=== PATIENT | female | born 1935 | race Caucasian/White ===

== ENCOUNTER 2017-09-06 13:26 | Outpatient (CLI) | payer MEDICARE, OTHER ==
--- NOTE | 2017-09-06 16:11 | XRAY Report ---
DATE OF SERVICE: 09/06/2017 TWO VIEW CHEST: 09/06/2017 CLINICAL INDICATION: New onset atrial fibrillation. COMPARISON: CT chest 10/12/2014. FINDINGS: Frontal and lateral views of the chest demonstrate a normal cardiac silhouette. Elevation of the left hemidiaphragm is stable from previous. Calcified granulomas and calcified hilar lymph nodes are unchanged. No new consolidation is seen. No effusion or pneumothorax is appreciated. IMPRESSION: STABLE ELEVATION OF THE LEFT HEMIDIAPHRAGM. CHANGES OF OLD GRANULOMATOUS DISEASE. NO EVIDENCE OF ACUTE CARDIOPULMONARY DISEASE. TD: 09/06/2017 17:10
== END 2017-09-06 13:27 | disposition home or self-care (01) ==
LOC: DI.N 13:26
PROVIDERS: ATTEND Physician Assistant
DX: I48.91 Unspecified atrial fibrillation (principal); I10 Essential (primary) hypertension; J06.9 Acute upper respiratory infection, unspecified; J98.6 Disorders of diaphragm
CPT/HCPCS: 71046

== ENCOUNTER 2017-10-26 12:31 | Outpatient (CLI) | payer MEDICARE, OTHER | END 2017-10-26 12:32 | disposition home or self-care (01) | LOC: DI 12:31 | PROVIDERS: ATTEND Family Medicine | DX: I48.91 Unspecified atrial fibrillation (principal); I50.9 Heart failure, unspecified; R60.9 Edema, unspecified; I07.1 Rheumatic tricuspid insufficiency; I27.20 Pulmonary hypertension, unspecified | CPT/HCPCS: 93306 ==

== ENCOUNTER 2018-03-21 09:26 | Outpatient (CLI) | payer MEDICARE, OTHER ==
--- NOTE | 2018-03-21 09:58 | XRAY Report ---
Procedure Date: 03/21/2018 Accession Number: [id number] / [id number] Procedure: XRN - Chest 2 View X-Ray CPT Code: 86153 FULL RESULT: EXAM: Chest 2 View X-Ray DATE: 03/21/2018 9:39 AM CLINICAL HISTORY: ABNL EXA,LL,VEGA COMPARISON: None. TECHNIQUE: 2 views. FINDINGS: Lungs/Pleura: Prior granulomatous disease as well as elevation of the left hemidiaphragm are redemonstrated. There is no new focal consolidation, pleural effusion or pneumothorax. Mediastinum: Heart and mediastinal contours are essentially unchanged.. Other: None. IMPRESSION: Stable exam demonstrating prior granulomatous disease and elevation of the left hemidiaphragm with no acute abnormality. RADIA
== END 2018-03-21 09:27 | disposition home or self-care (01) ==
LOC: DI.N 09:26
PROVIDERS: ATTEND Internal Medicine
DX: R06.09 Other forms of dyspnea (principal)
CPT/HCPCS: 71046

== ENCOUNTER 2018-08-27 06:31 | Outpatient (CLI) | payer MEDICARE, OTHER | END 2018-08-27 06:32 | disposition critical access hospital (66) | LOC: EMS 06:31 | PROVIDERS: ATTEND Surgery | DX: R06.02 Shortness of breath (principal); R11.0 Nausea; R53.1 Weakness | CPT/HCPCS: A0425; A0429 ==

== ENCOUNTER 2018-08-27 06:49 | Inpatient (IN) | payer MEDICARE, OTHER ==
[2018-08-27] MEDS ORDERED: SODIUM CHLORIDE 0.9% 1,000 ML IV ONE (07:02)
[2018-08-27] MEDS ORDERED: ONDANSETRON 4 MG/2 ML VIAL IVP STA ×2 (07:14→08:00)
[2018-08-27 07:18] LABS: BASOPHILS % (AUTO) 0.7 %; EOSINOPHILS # (AUTO) 0.1 10^3/uL (0.0-0.7); EOSINOPHILS % (AUTO) 3.2 %; HGB - HEMOGLOBIN 13.2 g/dL (12.0-16.0); LYMPHOCYTES # (AUTO) 1.1 10^3/uL (1.5-3.5); LYMPHOCYTES % (AUTO) 25.4 %; MEAN CORPUSCULAR HEMOGLOBIN 31.6 pg (27.0-31.0); MEAN CORPUSCULAR HGB CONC 34.2 g/dL (32.0-36.0); MEAN CORPUSCULAR VOLUME 92.3 fL (81.0-99.0); MEAN PLATELET VOLUME 7.7 fL (7.9-10.8); MONOCYTES # (AUTO) 0.3 10^3/uL (0.0-1.0); MONOCYTES % (AUTO) 7.7 %; NEUTROPHILS # (AUTO) 2.8 10^3/uL (1.5-6.6); PLT - PLATELET COUNT 229 10^3/uL (130-450); RED BLOOD COUNT 4.18 10^6/uL (4.20-5.40); RED CELL DISTRIBUTION WIDTH 15.2 % (12.0-15.0); WHITE BLOOD COUNT 4.5 x10^3/uL (4.8-10.8)
[2018-08-27] MEDS ORDERED: IOVERSOL 320 100 ML VIAL IVP ONE ×4 (07:18→11:52)
--- NOTE | 2018-08-27 07:24 | ED Physician Documentation ---
PD HPI FOCAL NEURO - Stated complaint Stated Complaint: WEAKNESS/ SOA - Chief complaint Chief Complaint: Neuro - History obtained from History obtained from: Patient, Family, EMS - History of Present Illness Timing - onset: How many hours ago (2) Timing - duration: Hours (2) Timing - details: Abrupt onset Severity of deficit: Mild Weakness: Arm, Leg, Right Associated symptoms: Nausea / vomiting, Other (Shortness of breath) Contributing factors: positive: Anticoagulated, Atrial fibrillation Baseline status: positive: A&OX3, ambulatory, indep, Cane Similar symptoms before: Has not had sx before Recently seen: Not recently seen - Additional information Additional information: 83-year-old female with history of atrial fib on Xarelto, asthma, HTN here with complaint of right-sided weakness and shortness of breath upon awakening at 5:00 this morning. She states that she tried to stand up and fell back in bed due to the right sided weakness. Patient is active and had been using a cane just for balance related to Meniere's. Patient claimed that she was in [place] a week ago for a couple of days due to of her brother. They flew to [place]. Per family patient was driving around to the senior citizen yesterday. Patient denies any recent illness. Patient complaint of nausea related to riding in the ambulance. EMS reported that when they arrived on scene patient's room air pulse ox was 86% and patient had some wheezing. She was given oxygen and 1 DuoNeb with improvement. They also reported that she had right-sided weakness upon arrival about an hour ago. Review of Systems Ten Systems: 10 systems reviewed and negative Constitutional: denies: Fever, Chills, Myalgias Nose: denies: Rhinorrhea / runny nose, Congestion Throat: denies: Sore throat Cardiac: denies: Chest pain / pressure Respiratory: reports: Dyspnea. denies: Cough GI: reports: Nausea. denies: Abdominal Pain, Vomiting Neurologic: reports: Focal weakness. denies: Generalized weakness, Numbness, Difficulty speaking, Syncope, Confused, Altered mental status, Headache, Head injury, LOC PD PAST MEDICAL HISTORY - Past Medical History Cardiovascular: Hypertension Respiratory: Asthma Endocrine/Autoimmune: None GI: GERD, Ulcers : None HEENT: Glaucoma Psych: None Musculoskeletal: Osteoarthritis Derm: None - Past Surgical History General: Cholecystectomy, Appendectomy, Colonoscopy, EGD /BILINGUAL CUSTOMER SERVICE: Hysterectomy, Oophrectomy, Breast reduction HEENT: Cataracts - Present Medications Home Medications: Ambulatory Orders Medication Instructions Recorded Confirmed Famotidine 20 mg PO 08/27/18 08/27/18 Furosemide 20 mg PO 08/27/18 Isosorbide Dinitrate 10 mg PO TID 08/27/18 08/27/18 Lisinopril 10 mg PO 08/27/18 Meclizine HCl [Motion Sickness 25 mg PO 08/27/18 Relief] Pantoprazole [Protonix] 40 mg PO 08/27/18 Rivaroxaban [Xarelto] 20 mg PO 08/27/18 - Allergies Allergies/Adverse Reactions: Allergies Allergy/AdvReac Type Severity Reaction Status Date / Time Sulfa (Sulfonamide Allergy Severe Rash Verified 08/27/18 06:56 Antibiotics) codeine Allergy Intermediate muscle Verified 08/27/18 06:56 aches PD ED PE NORMAL - Vitals Vital signs reviewed: Yes - General General: Alert and oriented X 3, No acute distress, Well developed/nourished - HEENT HEENT: PERRL, EOMI, Moist mucous membranes, Pharynx benign - Neck Neck: Supple, no meningeal sign - Cardiac Cardiac: No murmur, Other (Irregular heart rhythm) - Respiratory Respiratory: No respiratory distress, Clear bilaterally - Abdomen Abdomen: Normal bowel sounds, Soft, Non tender, Non distended - Back Back: No CVA TTP, No spinal TTP - Derm Derm: Normal color, Warm and dry - Extremities Extremities: No deformity, No tenderness to palpate, Normal ROM s pain, No edema - Neuro Neuro: Alert and oriented X 3, No motor deficit, No sensory deficit, Normal speech, Other (Right leg strength slightly weaker than the left but no pronator drift.) - Psych Psych: Normal mood, Normal affect Results - Vitals Vitals: Vital Signs - 24 hr 08/27/18 06:49 Temperature 36.2 C L Heart Rate 96 Respiratory 26 H Rate Blood Pressure 168/113 H O2 Saturation 97 Oxygen O2 Source duoneb - EKG (time done) 0651 Rate: Rate (enter#) (109) Rhythm: Atrial fibrillation [place]: Normal QRS: Normal Ischemia: Non specific changes Compare to prior EKG: Old EKG unavailable - Labs Labs: Laboratory Tests 08/27/18 08/27/18 08/27/18 07:10 07:10 07:10 WBC 4.5 L RBC 4.18 L Hgb 13.2 Hct 38.6 MCV 92.3 MCH 31.6 H MCHC 34.2 RDW 15.2 H Plt Count 229 MPV 7.7 L Neut # (Auto) 2.8 Lymph # (Auto) 1.1 L Dolores # (Auto) 0.3 Eos # (Auto) 0.1 Baso # (Auto) 0.0 Absolute Nucleated RBC 0.01 Nucleated RBC % 0.1 PT 16.2 H INR 1.4 H APTT 34.1 H Sodium 138 Potassium 3.7 Chloride 103 Carbon Dioxide 25 Anion Gap 10.0 BUN 10 Creatinine 0.4 Estimated GFR (MDRD) 152 Glucose 107 H Calcium 9.5 Magnesium 1.7 Total Bilirubin 0.8 AST 65 H ALT 38 Alkaline Phosphatase 64 Troponin I B-Natriuretic Peptide Total Protein 6.6 L Albumin 3.8 Globulin 2.8 Albumin/Globulin Ratio 1.4 Lipase 29 08/27/18 08/27/18 07:10 07:10 WBC RBC Hgb Hct MCV MCH MCHC RDW Plt Count MPV Neut # (Auto) Lymph # (Auto) Dolores # (Auto) Eos # (Auto) Baso # (Auto) Absolute Nucleated RBC Nucleated RBC % PT INR APTT Sodium Potassium Chloride Carbon Dioxide Anion Gap BUN Creatinine Estimated GFR (MDRD) Glucose Calcium Magnesium Total Bilirubin AST ALT Alkaline Phosphatase Troponin I < 0.04 B-Natriuretic Peptide 455 H Total Protein Albumin Globulin Albumin/Globulin Ratio Lipase - Rads (name of study) Chest x-ray Radiology: EMP read indepedently (CHF) PD MEDICAL DECISION MAKING - ED course Complexity details: reviewed results, re-evaluated patient, considered differential (TIA, CVA, CHF, asthma, pneumonia, PE, ACS), d/w patient, d/w family, d/w [facility] ebs consultant ED course: 03 12 NIH SS score 1. 07 34 called from radiology who reported CT head scan no acute. 07 46 Case discussed with [facility] neurology Venus Trujillo who recommended to admit the patient for further workup such as carotid ultrasound, CTA head and neck and echocardiogram. Stated MRI scan can be done on Wednesday since we do not have the MRI scanner. She stated patient is not a TPA candidate as she is already on Xarelto And patient improved significantly in a short time. She also recommended to reevaluate patient's Xarelto and consider a different anticoagulant. 07 51 reevaluated patient. Awake alert oriented no pronator drift. No focal deficit. NIH S score of 0. Lungs with few scattered bilateral rales. Patient states she feels better with the oxygen on. However she still feels nauseous. Will give her additional Zofran. Patient and family inform of test results and recommendation of neurology. Agreed to admission. 0800 spoke to the hospitalist Dr. Angeles regarding case Including recommendation of neurology. He will admit the patient inpatient for CHF and TIA Departure - Departure Disposition: 66 [facility] DC/Xfer Clinical Impression: TIA (transient ischemic attack), CHF (congestive heart failure) Condition: Stable
[2018-08-27 07:31] LABS: ALBUMIN 3.8 g/dL (3.2-5.5); ALBUMIN/GLOBULIN RATIO 1.4 (1.0-2.2); BILIRUBIN,TOTAL 0.8 mg/dL (0.2-1.0); CALCIUM 9.5 mg/dL (8.5-10.3); CREATININE 0.4 mg/dL (0.4-1.0); MAGNESIUM 1.7 mg/dL (1.7-2.8); TOTAL PROTEIN 6.6 g/dL (6.7-8.2)
[2018-08-27 07:32] LABS: INR 1.4 (0.8-1.2); PT - PROTHROMBIN TIME 16.2 secs (9.9-12.6)
--- NOTE | 2018-08-27 07:37 | CT Report ---
Reason: awoke right sided weakness this morning Procedure Date: 08/27/2018 Accession Number: [id number] / [id number] Procedure: CT - Head W/O Stroke Protocol CPT Code: FULL RESULT: EXAM: CT HEAD EXAM DATE: 08/27/2018 07:25 AM. CLINICAL HISTORY: Awoke right sided weakness this morning. COMPARISON: None. TECHNIQUE: Multiaxial CT images were obtained from the foramen magnum to the vertex. Reformats: Sagittal and coronal. IV contrast: None. In accordance with CT protocol optimization, one or more of the following dose reduction techniques were utilized for this exam: automated exposure control, adjustment of mA and/or KV based on patient size, or use of iterative reconstructive technique. FINDINGS: Parenchyma: No intraparenchymal hemorrhage. No evidence of mass, midline shift, or CT findings of acute infarction. Villafana-white differentiation is distinct. Extraaxial Spaces: Normal for age. No subdural or epidural collections identified. Ventricles: Normal in size and position. Sinuses and Orbits: Imaged paranasal sinuses, orbits, and mastoids show no significant abnormality. Bones: No evidence of fracture or calvarial defect. Other: None. IMPRESSION: 1. No contraindications to thrombolytic therapy. 2. No acute intracranial abnormality noted. Findings discussed immediately with Dr. Dacosta by phone on 08/27/2018 at 7:35 AM KAITLYNN
[2018-08-27] MEDS ORDERED: FUROSEMIDE 40 MG/4 ML VIAL IVP STA (08:05)
--- NOTE | 2018-08-27 08:07 | XRAY Report ---
Reason: chest pain Procedure Date: 08/27/2018 Accession Number: [id number] / [id number] Procedure: XR - Chest 1 View X-Ray CPT Code: 86363 FULL RESULT: EXAM: CHEST RADIOGRAPHY EXAM DATE: 08/27/2018 07:40 AM. CLINICAL HISTORY: Chest pain. COMPARISON: Chest radiograph from 03/21/2018. TECHNIQUE: 1 view. FINDINGS: Lungs/Pleura: Elevation of the left hemidiaphragm has not significantly changed. There is diffuse interstitial prominence, increased from the prior examination. Additional patchy opacity present in the right base. Small right pleural effusion may be present. No left pleural effusion or pneumothorax. Mediastinum: Cardiomediastinal silhouette is mildly prominent. Pulmonary vasculature is engorged and indistinct. Other: None. IMPRESSION: 1. Findings suggesting mild CHF/fluid overload. 2. Additional patchy right basilar opacity may represent atelectasis and more confluent pulmonary edema. However, superimposed aspiration/pneumonia is not excluded. 3. Possible small right pleural effusion. RADIA
[2018-08-27] MEDS ORDERED: ONDANSETRON 4 MG/2 ML VIAL IVP PRN (09:12)
[2018-08-27] MEDS ORDERED: ACETAMINOPHEN 325 MG TABLET PO PRN (09:12)
[2018-08-27] MEDS ORDERED: MECLIZINE 12.5 MG TABLET PO PRN (09:25)
[2018-08-27] MEDS ORDERED: ALBUTEROL NEB 2.5 MG/3 ML INH PRN (10:47)
[2018-08-27] MEDS ORDERED: IPRATROPIUM/ALBUTEROL 3 ML NEB INH PRN (10:47)
--- NOTE | 2018-08-27 10:47 | HISTORY & PHYSICAL EXAMINATION ---
Chief Complaint - Chief Complaint Chief Complaint: right side weakness, SOB History of Present Illness - History of Present Illness HPI Comment/Other: Ms. Mcclendon is a 83-year-old female with history of atrial fib on Xarelto, asthma, HTN, GERD, ulcer, Glaucoma, Osteoarthritis, who present ER with complaint of right-sided weakness and shortness of breath upon awakening. She report when she tried to stand up but fell back in bed due to the right sided weakness. She denies any injury from the fall. Patient report that she was in [place] for a couple of days due to of her brother. Pt report she has been using a cane for balance. Patient report she had nausea but though it was related to riding in the ambulance. Upon examination, pt is alert and oriented, pt does not present focal deficit, her NIHS score of 0. Per ER report, EMS also reported that patient's sats was 86% on room air and patient had some wheezing. Then pt was given oxygen and once DuoNeb, pt present improvement. CT head scan no acute finding. ER called [facility] neurology Dr. Venus Trujillo, she recommended to admit the patient for further workup such as carotid ultrasound, CTA head and neck and echocardiogram. Dr. Trujillo stated MRI scan can be done on Wednesday since we do not have the MRI scanner. Dr. Trujillo recommend patient is not a TPA candidate because pt is already on Xarelto, and she improved significantly in a short time. Lab test reveals pt's BNP was 455. CXR reveals mild CHF with fluid overload. Pt was admitted for TIA and CHF exacerbation. History - Past Medical History Cardiovascular: reports: Hypertension Respiratory: reports: Asthma Neuro: reports: None Endocrine/Autoimmune: reports: None GI: reports: GERD, Ulcers MANAGED CARE PROVIDER: reports: None : reports: None HEENT: reports: Glaucoma Psych: reports: None Musculoskeletal: reports: Osteoarthritis Derm: reports: None MRSA Hx?: No - Past Surgical History General: reports: Cholecystectomy, Appendectomy, Colonoscopy, EGD /MANAGED CARE PROVIDER: reports: Hysterectomy, Oophrectomy, Breast reduction HEENT: reports: Cataracts - Family & Social History Family History: Mother: , CVA/TIA, Father: , CAD, Cancer Social History Notes: pt denies cigarette smoker, alcohol and drug issue - POLST Patient has POLST: No POLST Status: DNR Meds/Allgy - Home Medications Home Medications: Ambulatory Orders Medication Instructions Recorded Confirmed Acetaminophen [Tylenol] 650 mg PO Q6H PRN 08/27/18 08/27/18 Ascorbic Acid 500 mg PO DAILY 08/27/18 08/27/18 Famotidine 20 mg PO DAILY 08/27/18 08/27/18 Furosemide 20 mg PO DAILY 08/27/18 08/27/18 Ipratropium [place] 2 puffs NS TID PRN 08/27/18 08/27/18 Isosorbide Dinitrate 10 mg PO TID 08/27/18 08/27/18 Lisinopril 10 mg PO DAILY 08/27/18 08/27/18 Meclizine HCl [Motion Sickness 25 mg PO DAILY PRN 08/27/18 08/27/18 Relief] Metoprolol Tartrate [Lopressor] 25 mg PO QPM 08/27/18 08/27/18 Metoprolol Tartrate [Lopressor] 50 mg PO DAILY 08/27/18 08/27/18 Multivitamin [Multiple Vitamins] 1 each PO DAILY 08/27/18 08/27/18 Pantoprazole [Protonix] 20 mg PO DAILY 08/27/18 08/27/18 Rivaroxaban [Xarelto] 20 mg PO DAILY 08/27/18 08/27/18 Timolol 0.5% Ophth Drops [Timoptic 1 drops EACHEYE BID 08/27/18 08/27/18 0.5% Ophth Drops] Travoprost [Travatan Z] 1 drops EACHEYE QPM 08/27/18 08/27/18 - Allergies Allergies/Adverse Reactions: Allergies Allergy/AdvReac Type Severity Reaction Status Date / Time Sulfa (Sulfonamide Allergy Severe Rash Verified 08/27/18 06:56 Antibiotics) codeine Allergy Intermediate muscle Verified 08/27/18 06:56 aches Review of Systems - Constitutional Constitutional: reports: Weakness. denies: Fatigue, Fever, Chills, Malaise, Poor appetite, Diaphoresis, Night sweats - Eyes Eyes: denies: Pain, Irritation, Amaurosis, Blurred vision, Spots in vision, Field loss, Dipolpia - Ears, Nose & Throat Ears, Nose & Throat: denies: Ear pain, Hearing loss, Tinnitus, Vertigo, Nasal pain, Nasal discharge, Nosebleeds, Nasal congestion, Dentures, Sore throat, Hoarseness - Cardiovascular Cariovascular: denies: Irregular heart rate, Palpitations, Chest pain, Edema, Lightheadedness, Syncope, Exertional dyspnea, Decr. exercise tolerance - Respiratory Respiratory: denies: Cough, Sputum production, Wheezing, Snoring, Hemoptysis, Orthopnea, SOB at rest, SOB with exertion - Gastrointestinal Gastrointestinal: denies: Abdominal distention, Constipation, Diarrhea, Change in bowel habits, Rectal bleeding, Black stools, Bloody stools, Nausea, Vomiting, Bile emesis, Tom blood emesis - Genitourinary Genitourinary: denies: Dysuria, Frequency, Urgency, Hematuria, Incontinence, Flank pain, Nocturia, Urethral discharge - Musculoskeletal Musculoskeletal: denies: Muscle pain, Back pain, Muscle aches, Stiffness, Limited range of motion, Muscle weakness, Gout, Joint pain - Integumentary Integumentary: denies: Rash, Pruritis, Lesions, Dryness, Lumps, Acne, Pigment changes, Nail changes - Neurological Neurological: reports: Focal weakness, Abnormal gait, Incoordination. denies: General weakness, Headache, Dizziness, Numbness, Memory problems, Pre-existing deficit, Seizures, Slurred speech - Psychiatric Psychiatric: denies: Depression, Anxiety, Suicidal, Delusions, Hallucinations, Homicidal - Endocrine Endocrine: denies: Polyuria, Polydypsia, Polyphagia, Intolerance to cold - Hematologic/Lymphatic Hematologic/Lymphatic: denies: Anemia, Bruising, Petechiae, Blood clots, Lymphadenopathy, Bleeding tendencies Prior Level of Functionality: independent Exam - Vital Signs Reviewed Vital Signs: Yes Vital Signs: Vital Signs x48h Temp Pulse Pulse Resp BP BP Pulse Ox 08/27/18 10:18 100 18 147/76 H 97 08/27/18 09:16 111 H 19 150/104 H 97 08/27/18 08:29 114 H 18 143/96 H 97 08/27/18 08:12 111 H 15 147/107 H 97 08/27/18 06:49 36.2 C L 96 26 H 168/113 H 97 - Physical Exam General Appearance: positive: No acute distress, Alert. negative: Lethargic Eyes Bilateral: positive: Normal inspection, PERRL, No lid inflammation, Conjunctivae nml ENT: positive: ENT inspection nml, Pharynx nml, No signs of dehydration. negative: Purulent nasal drainage, Pharyngeal erythema, Oral lesions Neck: positive: Nml inspection, Thyroid nml, No JVD, Trachea midline. negative: Thyromegaly, Lymphadenopathy (R), Lymphadenopathy (L), Stiff neck, Swelling/bruising, Tracheal deviation Respiratory: positive: Chest non-tender, No respiratory distress, Breath sounds nml. negative: Wheezes, Rales, Rhonchi Cardiovascular: positive: Regular rate & rhythm, No murmur, No gallop. negative: Irregularly irregular, Extrasystoles, Tachycardia, Bradycardia, JVD present, Systolic murmur, Diastolic murmur Peripheral Pulses: positive: 2+ Abdomen: positive: Non-tender, No organomegaly, Nml bowel sounds, No distention. negative: Tenderness, Guarding, Rebound Back: positive: Nml inspection. negative: CVA tenderness (R), CVA tenderness (L) Skin: positive: Color nml, No rash, Warm, Dry. negative: Cyanosis, Diaphoresis, Pallor Extremities: positive: Non-tender, Full ROM, Nml appearance. negative: Calf tenderness, Joint swelling, Mekhi's sign/cords Neurologic/Psychiatric: positive: Oriented x3, Motor nml, Sensation nml, Mood/affect nml. negative: Weakness, Sensory loss, Facial droop, Slurred/abnml speech, Depressed mood/affect Sepsis Event Note (H) - Evaluation Current Stage of Sepsis: Ruled out Conclusion/Plan - Problem List (1) TIA (transient ischemic attack) Conclusion/Plan: pt present TIA, and symptoms resolved by her own. [facility] was called. MRI of brain on Wednesday ECHO, EKG, CTA of head, neck Add Aspirin and Lipitor for pt continue Xarelto neur check (2) CHF exacerbation Conclusion/Plan: Pt present SOB, CXR reveals fluid overload, pulmonary mild edema, mild elevated BNP start on Lasix 40mg IV check BNP followup ECHO study continue home beta-gabriel tele and vital monitor (3) Atrial fibrillation with RVR Conclusion/Plan: pt present slight tachycardia 100-115. EKG indicates afib with RVR. pt does not complain symptoms reconsile home Beta-gabriel tele monitor, will followup to see if need adjust meds (4) Asthma Conclusion/Plan: it seems pt is stable for asthma continue home meds, Albuterol PRN O2 supplement as needed (5) HTN (hypertension) Conclusion/Plan: stable, hold Lisinopril, allow BP rise (6) Hyperlipidemia Conclusion/Plan: start on Lipitor, recheck Lipid panel (7) Medical non-compliance Conclusion/Plan: pt report she was prescribed Statin meds, but she did not take by her own decision. consult for medical compliance (8) Glaucoma Conclusion/Plan: stable, resume home meds (9) Do not intubate, cardiopulmonary resuscitation (CPR)-only code status Conclusion/Plan: pt request DNR - Lab Results Fish Bones: 08/27/18 07:10 08/27/18 07:10 Core Measures - Anticipated LOS I expect patient to be DC'd or transferred within 96 hours.: Yes - DVT/VTE - Prophylaxis VTE/DVT Device ordered at admit?: Yes VTE/DVT Prophylaxis med ordered at admit?: Yes
[2018-08-27] MEDS ORDERED: METOPROLOL SUCCINATE 25 MG TABLET PO SCH (11:00)
[2018-08-27] MEDS ORDERED: FUROSEMIDE 40 MG/4 ML VIAL IVP SCH (13:00)
--- NOTE | 2018-08-27 13:56 | CT Report ---
Reason: TIA Procedure Date: 08/27/2018 Accession Number: [id number] / [id number] Procedure: CT - Head Angio CPT Code: FULL RESULT: EXAM: CT ANGIOGRAM HEAD. CT SCAN OF THE HEAD WITH CONTRAST. EXAM DATE: 08/27/2018 11:49 AM CLINICAL HISTORY: TIA. History of right-sided weakness. COMPARISON: CT head without contrast from today. TECHNIQUE: - CT Scan Head: Using a multidetector scanner, axial images were acquired from the foramen magnum to the skull vertex following IV contrast administration. - CT Angiogram: Using a multidetector scanner, high-resolution axial images were acquired from the skull base through vertex following rapid infusion of intravenous contrast. Reformats: Multiplanar MIP reformats were reconstructed. Nascet criteria used for stenosis measurement. IV Contrast: OPTI 320 80 mL. In accordance with CT protocol optimization, one or more of the following dose reduction techniques were utilized for this exam: automated exposure control, adjustment of mA and/or KV based on patient size, or use of iterative reconstructive technique. FINDINGS: CT HEAD: No enhancing mass is identified in the brain parenchyma. The reader is referred to the patient's noncontrast head CT performed earlier and dictated under separate cover. CT ANGIOGRAM HEAD: No high-grade stenosis, filling defect, or occlusion is present in the proximal aspect of the major intracranial vessels. No significant outpouching of enhancement is present to suggest a saccular aneurysm. Expected enhancement is present in the major dural venous sinuses. A posterior communicating artery is seen on the right and on the left. OTHER: No mass is present in the visualized nasopharynx or in either orbit. IMPRESSION: CT Head: 1. No enhancing mass is identified. CTA Head: 1. No high-grade stenosis, filling defect, or occlusion is present in the proximal aspect of the major intracranial vessels. 2. No saccular aneurysm is identified. RADIA
--- NOTE | 2018-08-27 14:06 | CT Report ---
Reason: TIA Procedure Date: 08/27/2018 Accession Number: [id number] / [id number] Procedure: CT - Neck Angio CPT Code: FULL RESULT: EXAM: CT ANGIOGRAM NECK EXAM DATE: 08/27/2018 11:49 AM. CLINICAL HISTORY: Transient ischemic attack. Right-sided weakness. COMPARISON: CT angiogram head and neck from today. TECHNIQUE: Routine axial helical imaging was performed from the skull base through the aortic arch. Reconstructions: Routine multiplanar 3D MIP reconstructions. IV Contrast: Optiray 320, 80 mL. Evaluation of arterial stenosis is based on a NASCET method of measurement. In accordance with CT protocol optimization, one or more of the following dose reduction techniques were utilized for this exam: automated exposure control, adjustment of mA and/or KV based on patient size, or use of iterative reconstructive technique. FINDINGS: Right Carotid: Atherosclerotic plaque is seen in the distal CCA and proximal cervical ICA without significant narrowing identified in the cervical ICA. Left Carotid: Atherosclerotic plaque is seen in the distal CCA and proximal cervical ICA. This results in a 60-70% stenosis of the proximal cervical ICA at the level of the distal bulb. Vertebrals: The right vertebral artery is dominant. The left vertebral artery has an independent origin off of the transverse thoracic aorta. The appearance of mild narrowing involving the proximal left vertebral artery might well be artifact. No significant narrowing is present in the dominant cervical right vertebral artery. Great vessel origins: No stenosis. Other: Tiny hypodense thyroid nodules are seen bilaterally. The thyroid gland is not enlarged. No mass is present in either submandibular gland or in either parotid gland. No subglottic stenosis is present. No bulky lymphadenopathy is identified along either internal jugular chain. No suspicious spiculated mass is identified in either visualized upper lung. Degenerative changes are seen in the visualized spine, greatest in the cervical spine at C5-C6 and at C6-C7. IMPRESSION: 1. Atherosclerotic plaque is seen in the proximal cervical ICA bilaterally. This does not result in significant narrowing on the right. This results in a 60-70% stenosis involving the proximal cervical ICA on the left. 2. The nondominant left vertebral artery has an independent origin off of the transverse thoracic aorta. The appearance of mild narrowing at its proximal aspect is favored to reflect artifact rather than true narrowing. 3. No significant stenosis is seen in the dominant cervical right vertebral artery. 4. Thyroid nodules are present bilaterally. CT cannot distinguish benign from malignant thyroid disease. 5. Degenerative changes are seen in the cervical spine and visualized upper thoracic spine. In the cervical spine, this is greatest at C5-C6 and at C6-C7. There is bilateral foraminal stenosis at these levels. RADIA
[2018-08-27] MEDS: ISOSORBIDE DINITRATE 10 MG TABLET PO SCH ×2 (14:11→16:50)
[2018-08-27] MEDS: ASPIRIN CHEW 81 MG TABLET PO SCH (14:12)
[2018-08-27] MEDS: SODIUM CHLORIDE FLUSH 0.9% 10 ML SYRINGE IVP PRN (14:14)
[2018-08-27] MEDS ORDERED: METOPROLOL TARTRATE 50 MG TABLET PO SCH (15:34)
[2018-08-27] MEDS: RIVAROXABAN 10 MG TABLET PO SCH (16:49)
[2018-08-27] MEDS: METOPROLOL TARTRATE 25 MG TABLET PO SCH ×2 (16:50→20:06)
[2018-08-27] MEDS: SODIUM CHLORIDE FLUSH 0.9% 10 ML SYRINGE IVP SCH (16:51)
[2018-08-27] MEDS ORDERED: NITROGLYCERIN SL 0.4 MG TABLET SL PRN (17:03)
[2018-08-27 17:59] LABS: ALBUMIN 4.1 g/dL (3.2-5.5); ALBUMIN/GLOBULIN RATIO 1.4 (1.0-2.2); BILIRUBIN,TOTAL 0.9 mg/dL (0.2-1.0); CALCIUM 9.7 mg/dL (8.5-10.3); CREATININE 0.7 mg/dL (0.4-1.0); MAGNESIUM 1.5 mg/dL (1.7-2.8)
[2018-08-27] MEDS ORDERED: POTASSIUM CHLORIDE 20 MEQ TABLET PO ONE (18:04)
[2018-08-27] MEDS: MAGNESIUM OXIDE 400 MG TABLET PO SCH (18:34)
[2018-08-27] MEDS: ATORVASTATIN 40 MG TABLET PO SCH (20:06)
[2018-08-27] MEDS: TIMOLOL 0.5% OPHTH DROPS EACHEYE SCH (20:06)
[2018-08-27] MEDS: TRAVOPROST 0.004% OPHTH DROPS 2.5 ML EACHEYE SCH (20:06)
[2018-08-27] MEDS: ZOLPIDEM 5 MG TABLET PO PRN (20:08)
[2018-08-27] MEDS ORDERED: ATORVASTATIN 40 MG TABLET PO SCH (21:00)
[2018-08-27] MEDS ORDERED: METOPROLOL TARTRATE 25 MG TABLET PO SCH (21:00)
[2018-08-28] MEDS: SODIUM CHLORIDE FLUSH 0.9% 10 ML SYRINGE IVP SCH ×3 (01:08→17:11)
[2018-08-28 06:34] LABS: BASOPHILS % (AUTO) 0.5 %; EOSINOPHILS # (AUTO) 0.1 10^3/uL (0.0-0.7); EOSINOPHILS % (AUTO) 2.6 %; HGB - HEMOGLOBIN 12.7 g/dL (12.0-16.0); LYMPHOCYTES # (AUTO) 1.2 10^3/uL (1.5-3.5); LYMPHOCYTES % (AUTO) 25.4 %; MEAN CORPUSCULAR HEMOGLOBIN 30.6 pg (27.0-31.0); MEAN CORPUSCULAR HGB CONC 32.7 g/dL (32.0-36.0); MEAN CORPUSCULAR VOLUME 93.6 fL (81.0-99.0); MEAN PLATELET VOLUME 7.9 fL (7.9-10.8); MONOCYTES # (AUTO) 0.5 10^3/uL (0.0-1.0); MONOCYTES % (AUTO) 10.8 %; NEUTROPHILS # (AUTO) 2.9 10^3/uL (1.5-6.6); NEUTROPHILS % (AUTO) 60.7 %; PLT - PLATELET COUNT 223 10^3/uL (130-450); RED BLOOD COUNT 4.14 10^6/uL (4.20-5.40); RED CELL DISTRIBUTION WIDTH 15.1 % (12.0-15.0); WHITE BLOOD COUNT 4.8 x10^3/uL (4.8-10.8)
[2018-08-28] MEDS: PANTOPRAZOLE 40 MG TABLET PO SCH (06:34)
[2018-08-28 06:47] LABS: ALBUMIN 3.6 g/dL (3.2-5.5); ALBUMIN/GLOBULIN RATIO 1.4 (1.0-2.2); BILIRUBIN,TOTAL 0.9 mg/dL (0.2-1.0); CALCIUM 9.5 mg/dL (8.5-10.3); CREATININE 0.6 mg/dL (0.4-1.0); MAGNESIUM 1.7 mg/dL (1.7-2.8); TOTAL PROTEIN 6.2 g/dL (6.7-8.2)
[2018-08-28 07:09] LABS: CHOL/HDL RATIO 2.5 (<4.4); CHOLESTEROL 169 mg/dL; HDL CHOLESTEROL 68 mg/dL; LDL CHOLESTEROL,CALCULATED 89 mg/dL; LDL/HDL RATIO 1.3 (<4.4); VLDL CHOLESTEROL 12 mg/dL
[2018-08-28] MEDS ORDERED: POTASSIUM CHLORIDE 20 MEQ TABLET PO SCH (08:00)
[2018-08-28] MEDS: POLYETHYLENE GLYCOL 3350 17 GM PACKET PO SCH (08:21)
[2018-08-28] MEDS: METOPROLOL TARTRATE 50 MG TABLET PO SCH (08:21)
[2018-08-28] MEDS: ASPIRIN CHEW 81 MG TABLET PO SCH (08:21)
[2018-08-28] MEDS: MAGNESIUM OXIDE 400 MG TABLET PO SCH (08:21)
[2018-08-28] MEDS: ISOSORBIDE DINITRATE 10 MG TABLET PO SCH ×2 (08:21→14:21)
[2018-08-28] MEDS: MULTIVITAMIN TABLET PO SCH (08:21)
[2018-08-28] MEDS: ASCORBIC ACID CHEW 500 MG TABLET PO SCH (08:22)
[2018-08-28] MEDS ORDERED: METOPROLOL TARTRATE 25 MG TABLET PO SCH (09:00)
[2018-08-28] MEDS ORDERED: FUROSEMIDE 40 MG/4 ML VIAL IVP SCH (09:00)
[2018-08-28] MEDS: TIMOLOL 0.5% OPHTH DROPS EACHEYE SCH ×2 (09:36→20:30)
--- NOTE | 2018-08-28 14:47 | PROVIDER PROGRESS NOTE ---
Subjective - Prog Note Date Prog Note Date: 08/28/18 - Subjective Pt reports feeling: Improved Subjective: pt report she feel better, focus neurological deficit are improved. She also report her breath is also better than yesterday. She denies chest pain, fever, chill. Current Medications - Current Medications Current Medications: Active Medications Acetaminophen (Tylenol) 650 mg PO Q4HR PRN PRN Reason: Pain 1 to 4 Albuterol () 2.5 mg INH QID PRN PRN Reason: Wheezing Albuterol/Ipratropium (Duoneb) 3 ml INH RTQID PRN PRN Reason: Shortness of Air/Wheezing Ascorbic Acid (Vitamin C) 500 mg PO DAILY [facility] Last Admin: 08/28/18 08:22 Dose: 500 mg Aspirin ([place] Aspirin) 81 mg PO DAILY [facility] Last Admin: 08/28/18 08:21 Dose: 81 mg Atorvastatin Calcium (Lipitor) 40 mg PO QPM [facility] Last Admin: 08/27/18 20:06 Dose: 40 mg Furosemide (Lasix Inj 40 Mg Vial) 20 mg IVP BID [facility] Last Admin: 08/28/18 08:21 Dose: 20 mg Magnesium Oxide (Mag Ox) 400 mg PO DAILYWM [facility] Last Admin: 08/28/18 08:21 Dose: 400 mg Meclizine HCl (Antivert) 12.5 mg PO Q6HR PRN PRN Reason: Dizziness Metoprolol Tartrate (Lopressor) 25 mg PO QPM [facility] Last Admin: 08/27/18 20:06 Dose: 25 mg Metoprolol Tartrate (Lopressor) 50 mg PO DAILY [facility] Last Admin: 08/28/18 08:21 Dose: 50 mg Multivitamins (Theragran) 1 tab PO DAILYWM [facility] Last Admin: 08/28/18 08:21 Dose: 1 tab Nitroglycerin (Nitrostat) 0.4 mg SL Q5MIN PRN PRN Reason: Chest Pain Ondansetron HCl (Zofran Inj) 4 mg IVP Q6HR PRN PRN Reason: Nausea / Vomiting Pantoprazole Sodium (Protonix) 40 mg PO QDAC [facility] Last Admin: 08/28/18 06:34 Dose: 40 mg Polyethylene Glycol (Miralax) 17 gm PO DAILY [facility] Last Admin: 08/28/18 08:21 Dose: 17 gm Rivaroxaban (Xarelto) 20 mg PO QDDINNER [facility] Last Admin: 08/27/18 16:49 Dose: 20 mg Sodium Chloride (Normal Saline Flush 0.9%) 10 ml IVP PRN PRN PRN Reason: NEEDED PER PROVIDER ORDERS Last Admin: 08/27/18 14:14 Dose: 10 ml Sodium Chloride (Normal Saline Flush 0.9%) 10 ml IVP 0100,0900,1700 [facility] Last Admin: 08/28/18 08:21 Dose: 10 ml Timolol Maleate (Timoptic 0.5% Ophth Drops) 1 drops EACHEYE BID [facility] Last Admin: 08/28/18 09:36 Dose: 1 drops Travoprost (Travatan Z) 1 drops EACHEYE QPM [facility] Last Admin: 08/27/18 20:06 Dose: 1 drops Zolpidem Tartrate (Ambien) 5 mg PO QPM PRN PRN Reason: Insomnia Last Admin: 08/27/18 20:08 Dose: 5 mg Acetaminophen [Tylenol] 650 mg PO Q6H PRN 08/27/18 Ascorbic Acid 500 mg PO DAILY 08/27/18 Famotidine 20 mg PO DAILY 08/27/18 Furosemide 20 mg PO DAILY 08/27/18 Ipratropium [place] 2 puffs NS TID PRN 08/27/18 Isosorbide Dinitrate 10 mg PO TID 08/27/18 Lisinopril 10 mg PO DAILY 08/27/18 Meclizine HCl [Motion Sickness Relief] 25 mg PO DAILY PRN 08/27/18 Metoprolol Tartrate [Lopressor] 25 mg PO QPM 08/27/18 Metoprolol Tartrate [Lopressor] 50 mg PO DAILY 08/27/18 Multivitamin [Multiple Vitamins] 1 each PO DAILY 08/27/18 Pantoprazole [Protonix] 20 mg PO DAILY 08/27/18 Rivaroxaban [Xarelto] 20 mg PO DAILY 08/27/18 Timolol 0.5% Ophth Drops [Timoptic 0.5% Ophth Drops] 1 drops EACHEYE BID 08/27/18 Travoprost [Travatan Z] 1 drops EACHEYE QPM 08/27/18 Aspirin 81 mg PO DAILY 08/28/18 Melatonin 3 mg PO QPM 08/28/18 Zolpidem [Ambien] 2.5 - 5 mg PO HS PRN 08/28/18 Objective - Vital Signs/Intake & Output Reviewed Vital Signs: Yes Vital Signs: Vital Signs x48h Temp Pulse Pulse Resp BP BP Pulse Ox 08/28/18 13:00 36.8 C 92 18 95/56 L 95 08/28/18 09:09 36.6 C 94 20 92 08/28/18 08:21 141/83 H 08/28/18 08:00 36.6 C 94 18 141/83 H 96 Intake & Output: Intake & Output 08/25/18 08/26/18 08/27/18 08/28/18 23:59 23:59 23:59 23:59 Intake Total 1620 1560 Output Total 1050 470 Balance 570 1090 - Objective General Appearance: positive: No acute distress, Alert. negative: Lethargic Eyes Bilateral: positive: Normal inspection, PERRL, No lid inflammation, Conjunctivae nml ENT: positive: ENT inspection nml, Pharynx nml, No signs of dehydration. negative: Purulent nasal drainage, Pharyngeal erythema, Oral lesions Neck: positive: Nml inspection, Thyroid nml, No JVD, Trachea midline. negative: Thyromegaly, Lymphadenopathy (R), Lymphadenopathy (L), Stiff neck, Swelling/bruising, Tracheal deviation Respiratory: positive: Chest non-tender, No respiratory distress, Breath sounds nml. negative: Wheezes, Rales, Rhonchi Cardiovascular: positive: Regular rate & rhythm, No murmur, No gallop. negative: Irregularly irregular, Extrasystoles, Tachycardia, Bradycardia, Systolic murmur, Diastolic murmur Peripheral Pulses: 2+ Radial (R), 2+ Radial (L), 2+ Dorsalis pedis (R), 2+ Dorsalis pedis (L) Abdomen: positive: Non-tender, No organomegaly, Nml bowel sounds, No distention. negative: Tenderness, Guarding, Rebound Back: positive: Nml inspection. negative: CVA tenderness (R), CVA tenderness (L) Skin: positive: Color nml, No rash, Warm, Dry. negative: Cyanosis, Diaphoresis, Pallor Extremities: positive: Non-tender, Full ROM, Nml appearance. negative: Calf tenderness, Joint swelling, Mekhi's sign/cords Neurologic/Psychiatric: positive: Oriented x3, Motor nml, Sensation nml, Mood/affect nml. negative: Weakness, Sensory loss, Facial droop, Slurred/abnml speech, Depressed mood/affect - Lab Results Fish Bones: 08/28/18 06:18 08/28/18 06:18 Other Labs: Lab Results x24hrs 08/28/18 08/28/18 08/28/18 Range/Units 06:18 06:18 06:18 WBC (4.8-10.8) x10^3/uL RBC (4.20-5.40) 10^6/uL Hgb (12.0-16.0) g/dL Hct (37.0-47.0) % MCV (81.0-99.0) fL MCH (27.0-31.0) pg MCHC (32.0-36.0) g/dL RDW (12.0-15.0) % Plt Count (130-450) 10^3/uL MPV (7.9-10.8) fL Neut # (Auto) (1.5-6.6) 10^3/uL Lymph # (Auto) (1.5-3.5) 10^3/uL [place] # (Auto) (0.0-1.0) 10^3/uL Eos # (Auto) (0.0-0.7) 10^3/uL Baso # (Auto) (0.0-0.1) 10^3/uL Absolute Nucleated RBC x10^3/uL Nucleated RBC % /100WBC Sodium 137 (135-145) mmol/L Potassium 4.1 (3.5-5.0) mmol/L Chloride 98 L (101-111) mmol/L Carbon Dioxide 33 H (21-32) mmol/L Anion Gap 6.0 (6-13) BUN 7 (6-20) mg/dL Creatinine 0.6 (0.4-1.0) mg/dL Estimated GFR (MDRD) 95 (>89) Glucose 95 (70-100) mg/dL Calcium 9.5 (8.5-10.3) mg/dL Magnesium 1.7 (1.7-2.8) mg/dL Total Bilirubin 0.9 (0.2-1.0) mg/dL AST 35 (10-42) IU/L ALT 28 (10-60) IU/L Alkaline Phosphatase 55 (42-121) IU/L Troponin I (<0.49) ng/mL B-Natriuretic Peptide 364 H (5-100) pg/mL Total Protein 6.2 L (6.7-8.2) g/dL Albumin 3.6 (3.2-5.5) g/dL Globulin 2.6 (2.1-4.2) g/dL Albumin/Globulin Ratio 1.4 (1.0-2.2) Triglycerides 58 ( - 149) mg/dL Cholesterol 169 ( - 199) mg/dL LDL Cholesterol, Calc 89 ( - 129) mg/dL VLDL Cholesterol 12 mg/dL HDL Cholesterol 68 (60 - ) mg/dL LDL/HDL Ratio 1.3 (<4.4) Cholesterol/HDL Ratio 2.5 (<4.4) 08/28/18 08/27/18 08/27/18 Range/Units 06:18 17:18 17:18 WBC 4.8 (4.8-10.8) x10^3/uL RBC 4.14 L (4.20-5.40) 10^6/uL Hgb 12.7 (12.0-16.0) g/dL Hct 38.7 (37.0-47.0) % MCV 93.6 (81.0-99.0) fL MCH 30.6 (27.0-31.0) pg MCHC 32.7 (32.0-36.0) g/dL RDW 15.1 H (12.0-15.0) % Plt Count 223 (130-450) 10^3/uL MPV 7.9 (7.9-10.8) fL Neut # (Auto) 2.9 (1.5-6.6) 10^3/uL Lymph # (Auto) 1.2 L (1.5-3.5) 10^3/uL [place] # (Auto) 0.5 (0.0-1.0) 10^3/uL Eos # (Auto) 0.1 (0.0-0.7) 10^3/uL Baso # (Auto) 0.0 (0.0-0.1) 10^3/uL Absolute Nucleated RBC 0.00 x10^3/uL Nucleated RBC % 0.0 /100WBC Sodium 135 (135-145) mmol/L Potassium 3.1 L (3.5-5.0) mmol/L Chloride 94 L (101-111) mmol/L Carbon Dioxide 32 (21-32) mmol/L Anion Gap 9.0 (6-13) BUN 10 (6-20) mg/dL Creatinine 0.7 (0.4-1.0) mg/dL Estimated GFR (MDRD) 80 L (>89) Glucose 98 (70-100) mg/dL Calcium 9.7 (8.5-10.3) mg/dL Magnesium 1.5 L (1.7-2.8) mg/dL Total Bilirubin 0.9 (0.2-1.0) mg/dL AST 45 H (10-42) IU/L ALT 34 (10-60) IU/L Alkaline Phosphatase 62 (42-121) IU/L Troponin I < 0.04 (<0.49) ng/mL B-Natriuretic Peptide (5-100) pg/mL Total Protein 7.0 (6.7-8.2) g/dL Albumin 4.1 (3.2-5.5) g/dL Globulin 2.9 (2.1-4.2) g/dL Albumin/Globulin Ratio 1.4 (1.0-2.2) Triglycerides ( - 149) mg/dL Cholesterol ( - 199) mg/dL LDL Cholesterol, Calc ( - 129) mg/dL VLDL Cholesterol mg/dL HDL Cholesterol (60 - ) mg/dL LDL/HDL Ratio (<4.4) Cholesterol/HDL Ratio (<4.4) ABX Reporting Has patient been on IV antibiotics over the past 48 hours?: No Sepsis Event Note (H) - Evaluation Current Stage of Sepsis: Ruled out Assessment/Plan - Problem List (1) TIA (transient ischemic attack) Impression: 08/28 pt continue doing well. discuss with pt about all her images studies, answer all her questions MRI is planed to do tomorrow continue Aspirin, Lipitor and Xarelto continue neuro check, and PT/OT evaluation pt present TIA, and symptoms resolved by her own. [place] was called. MRI of brain on Wednesday ECHO, EKG, CTA of head, neck Add Aspirin and Lipitor for pt continue Xarelto neur check (2) CHF exacerbation Conclusion/Plan: 08/28 pt feel breath is better, BNP is going down continue Lasix 20mg Bid lab monitor electrolytic tele and vital monitor Pt present SOB, CXR reveals fluid overload, pulmonary mild edema, mild elevated BNP start on Lasix 40mg IV check BNP followup ECHO study continue home beta-gabriel tele and vital monitor (3) Atrial fibrillation with RVR Conclusion/Plan: 08/28 pt's HR is controlled. continue home Metoprolol regimen continue Xarelto continue tele and vital monitor pt present slight tachycardia 100-115. EKG indicates afib with RVR. pt does not complain symptoms reconsile home Beta-gabriel tele monitor, will followup to see if need adjust meds (4) Asthma Conclusion/Plan: it seems pt is stable for asthma continue home meds, Albuterol PRN O2 supplement as needed (5) HTN (hypertension) Conclusion/Plan: 08/28 slight lower BP, hold Imdur continue vital monitor stable, hold Lisinopril, allow BP rise (6) Hyperlipidemia Conclusion/Plan: start on Lipitor, recheck Lipid panel (7) Medical non-compliance Conclusion/Plan: pt report she was prescribed Statin meds, but she did not take by her own decision. consult for medical compliance (8) Glaucoma Conclusion/Plan: stable, resume home meds
[2018-08-28] MEDS: RIVAROXABAN 10 MG TABLET PO SCH (17:10)
[2018-08-28] MEDS: FUROSEMIDE 20 MG/2 ML VIAL IVP SCH (17:11)
[2018-08-28] MEDS: ATORVASTATIN 40 MG TABLET PO SCH (20:27)
[2018-08-28] MEDS: METOPROLOL TARTRATE 25 MG TABLET PO SCH (20:27)
[2018-08-28] MEDS: ZOLPIDEM 5 MG TABLET PO PRN (20:42)
[2018-08-28] MEDS: TRAVOPROST 0.004% OPHTH DROPS 2.5 ML EACHEYE SCH (20:42)
[2018-08-29] MEDS: SODIUM CHLORIDE FLUSH 0.9% 10 ML SYRINGE IVP SCH ×2 (00:11→08:59)
[2018-08-29] MEDS: FUROSEMIDE 20 MG/2 ML VIAL IVP SCH ×2 (05:43→13:39)
[2018-08-29] MEDS: SODIUM CHLORIDE FLUSH 0.9% 10 ML SYRINGE IVP PRN ×2 (05:43→05:51)
[2018-08-29 06:11] LABS: BASOPHILS % (AUTO) 0.4 %; EOSINOPHILS # (AUTO) 0.2 10^3/uL (0.0-0.7); EOSINOPHILS % (AUTO) 4.1 %; LYMPHOCYTES # (AUTO) 1.4 10^3/uL (1.5-3.5); MEAN CORPUSCULAR HEMOGLOBIN 30.3 pg (27.0-31.0); MEAN CORPUSCULAR HGB CONC 32.7 g/dL (32.0-36.0); MEAN CORPUSCULAR VOLUME 92.5 fL (81.0-99.0); MEAN PLATELET VOLUME 7.9 fL (7.9-10.8); MONOCYTES # (AUTO) 0.5 10^3/uL (0.0-1.0); MONOCYTES % (AUTO) 10.4 %; NEUTROPHILS # (AUTO) 2.7 10^3/uL (1.5-6.6); NEUTROPHILS % (AUTO) 56.1 %; PLT - PLATELET COUNT 232 10^3/uL (130-450); RED BLOOD COUNT 4.29 10^6/uL (4.20-5.40); RED CELL DISTRIBUTION WIDTH 14.9 % (12.0-15.0); WHITE BLOOD COUNT 4.9 x10^3/uL (4.8-10.8)
[2018-08-29 06:22] LABS: ALBUMIN 3.6 g/dL (3.2-5.5); ALBUMIN/GLOBULIN RATIO 1.4 (1.0-2.2); BILIRUBIN,TOTAL 0.8 mg/dL (0.2-1.0); CALCIUM 9.3 mg/dL (8.5-10.3); CREATININE 0.6 mg/dL (0.4-1.0); TOTAL PROTEIN 6.1 g/dL (6.7-8.2)
[2018-08-29] MEDS: PANTOPRAZOLE 40 MG TABLET PO SCH (06:58)
[2018-08-29] MEDS ORDERED: POTASSIUM CHLORIDE 20 MEQ TABLET PO ONE (07:22)
[2018-08-29] MEDS: MULTIVITAMIN TABLET PO SCH (08:57)
[2018-08-29] MEDS: METOPROLOL TARTRATE 50 MG TABLET PO SCH (08:57)
[2018-08-29] MEDS: MAGNESIUM OXIDE 400 MG TABLET PO SCH (08:58)
[2018-08-29] MEDS: ASPIRIN CHEW 81 MG TABLET PO SCH (08:58)
[2018-08-29] MEDS: POLYETHYLENE GLYCOL 3350 17 GM PACKET PO SCH (08:58)
[2018-08-29] MEDS: ASCORBIC ACID CHEW 500 MG TABLET PO SCH (08:58)
[2018-08-29] MEDS: TIMOLOL 0.5% OPHTH DROPS EACHEYE SCH (08:59)
--- NOTE | 2018-08-29 14:19 | MRI Report ---
Reason: TIA Procedure Date: 08/29/2018 Accession Number: [id number] / [id number] Procedure: MRI - Brain W/O CPT Code: FULL RESULT: EXAM: MRI BRAIN WITHOUT CONTRAST EXAM DATE: 08/29/2018 12:08 PM. CLINICAL HISTORY: TIA. COMPARISON: None. TECHNIQUE: Multiplanar, multisequence T1-weighted and fluid-sensitive MR sequences of the brain were performed. Sequences optimized for routine evaluation. Other: None. IV Contrast: None. FINDINGS: Brain Volume: Normal for age. Parenchyma/Dura: No mass, acute infarct or hemorrhage. Minimal scattered foci of T2/FLAIR bright white matter signal is seen in the cerebral hemispheres. This is not an unexpected finding in a patient of age 83 years. Ventricles/Cisterns: No hydrocephalus. No abnormal extra-axial fluid collection or hemorrhage. Orbits: Symmetric and unremarkable. [place]: The pituitary gland, cavernous sinuses, suprasellar cistern and optic chiasm are unremarkable. IAC: Symmetric and unremarkable. Vasculature: Normal signal flow void is seen in the major arterial structures at the skull base. Sinuses: The paranasal sinuses are clear. Partial opacification is seen involving inferior right mastoid air cells. Bones: No focal pathologic appearing marrow signal changes. Other: None. IMPRESSION: 1. No acute intracranial abnormality. No acute infarct, mass, or hemorrhage. 2. Mild senescent change. RADIA
--- NOTE | 2018-08-29 15:07 | Discharge Plan ---
Discharge Plan Disposition: Home, Self Care Condition: Poor Prescriptions: Atorvastatin [Lipitor] 40 mg PO QPM #10 tablet Diet: Regular Activity Restrictions: Activity as Tolerated Shower Restrictions: No (fall precaution) Instruction Topics: TIA, Atorvastatin tablets Additional Instructions or Follow Up instructions: you may followup your PCP in one week. You MRI reveals no acute intracranial abnormality. Should your symptoms return or worsen, you may present ER or call 911 for help. No Smoking: If you smoke, Please STOP! Call for help. Follow-up with: Ronen Singh MD [Primary Care Provider] -
--- NOTE | 2018-08-29 15:15 | DISCHARGE SUMMARY ---
Discharge Summary Discharge Date: 08/29/18 Discharging Provider: GRAMAJO Primary Care Provider: Dr. Ronen Singh Condition at Discharge: Poor Discharge Disposition: 01 Home, Self Care Discharge Facility Name: home - DIAGNOSES Admission Diagnoses: (1) TIA (transient ischemic attack) (2) CHF exacerbation (3) Atrial fibrillation with RVR (4) Asthma (5) HTN (hypertension) (6) Hyperlipidemia (7) Medical non-compliance (8) Glaucoma Discharge Diagnoses with Status of Each Condition: (1) TIA (transient ischemic attack) completely resolved her symptoms, no focus neurological deficits. MRI reveals no acute finding. Discussed with CTA of neck/head result and other test results with pt and her daughter, answer all their questions. Lipitor is prescribed to pt (2) CHF exacerbation stable. 97% sats on room air, no SOB. pt walked the medical floor hillway several times. continue home meds, followup PCP (3) Atrial fibrillation with RVR stable HR, continue home regimen, followup PCP (4) Asthma stable (5) HTN (hypertension) stable (6) Hyperlipidemia stable, Lipitor is prescribed to pt (7) Medical non-compliance advise pt medial compliance (8) Glaucoma stable, continue home regimen. - HPI History of Present Illness: Ms. Mcclendon is a 83-year-old female with history of atrial fib on Xarelto, asthma, HTN, GERD, ulcer, Glaucoma, Osteoarthritis, who present ER with complaint of right-sided weakness and shortness of breath upon awakening. She report when she tried to stand up but fell back in bed due to the right sided weakness. She denies any injury from the fall. Patient report that she was in [place] for a couple of days due to of her brother. Pt report she has been using a cane for balance. Patient report she had nausea but though it was related to riding in the ambulance. Upon examination, pt is alert and oriented, pt does not present focal deficit, her NIHS score of 0. Per ER report, EMS also reported that patient's sats was 86% on room air and patient had some wheezing. Then pt was given oxygen and once DuoNeb, pt present improvement. CT head scan no acute finding. ER called [place] neurology Dr. Venus Trujillo, she recommended to admit the patient for further workup such as carotid ultrasound, CTA head and neck and echocardiogram. Dr. Trujillo stated MRI scan can be done on Wednesday since we do not have the MRI scanner. Dr. Trujillo recommend patient is not a TPA candidate because pt is already on Xarelto, and she improved significantly in a short time. Lab test reveals pt's BNP was 455. CXR reveals mild CHF with fluid overload. Pt was admitted for TIA and CHF exacerbation. - HOSPITAL COURSE Hospital Course: pt was admitted for TIA and right side weakness, and SOB. pt was found to have elevated BNP. Pt was treated with IV Lasix. SOB was resolved. pt has 97% sats on room air. pt walked at floor hillway for couple of times. Pt's TIA symptoms were totally resolved, no more focus neurological deficit. MRI and CT of head reveals unremarkable. discussed with pt and her daughter about CTA of neck ICA 60-70% stenosis, answer all their questions, and followup monitor. - ALLERGIES Allergies/Adverse Reactions: Allergies Allergy/AdvReac Type Severity Reaction Status Date / Time Sulfa (Sulfonamide Allergy Severe Rash Verified 08/27/18 06:56 Antibiotics) codeine Allergy Intermediate muscle Verified 08/27/18 06:56 aches - MEDICATIONS Home Medications: Ambulatory Orders Medication Instructions Recorded Confirmed Acetaminophen [Tylenol] 650 mg PO Q6H PRN 08/27/18 08/27/18 Ascorbic Acid 500 mg PO DAILY 08/27/18 08/27/18 Famotidine 20 mg PO DAILY 08/27/18 08/27/18 Furosemide 20 mg PO DAILY 08/27/18 08/27/18 Ipratropium [place] 2 puffs NS TID PRN 08/27/18 08/27/18 Isosorbide Dinitrate 10 mg PO TID 08/27/18 08/27/18 Lisinopril 10 mg PO DAILY 08/27/18 08/27/18 Meclizine HCl [Motion Sickness 25 mg PO DAILY PRN 08/27/18 08/27/18 Relief] Metoprolol Tartrate [Lopressor] 25 mg PO QPM 08/27/18 08/27/18 Metoprolol Tartrate [Lopressor] 50 mg PO DAILY 08/27/18 08/27/18 Multivitamin [Multiple Vitamins] 1 each PO DAILY 08/27/18 08/27/18 Pantoprazole [Protonix] 20 mg PO DAILY 08/27/18 08/27/18 Rivaroxaban [Xarelto] 20 mg PO DAILY 08/27/18 08/27/18 Timolol 0.5% Ophth Drops [Timoptic 1 drops EACHEYE BID 08/27/18 08/27/18 0.5% Ophth Drops] Travoprost [Travatan Z] 1 drops EACHEYE QPM 08/27/18 08/27/18 Aspirin 81 mg PO DAILY 08/28/18 08/28/18 Melatonin 3 mg PO QPM 08/28/18 08/28/18 Zolpidem [Ambien] 2.5 - 5 mg PO HS PRN 08/28/18 08/28/18 Atorvastatin [Lipitor] 40 mg PO QPM #10 tablet 08/29/18 - PHYSICAL EXAM AT DISCHARGE General Appearance: positive: No acute distress, Alert. negative: Lethargic Eyes Bilateral: positive: Normal inspection, PERRL, No lid inflammation, Conjunctivae nml ENT: positive: ENT inspection nml, Pharynx nml, No signs of dehydration. negative: Purulent nasal drainage, Pharyngeal erythema, Oral lesions Neck: positive: Nml inspection, Thyroid nml, No JVD, Trachea midline. negative: Thyromegaly, Lymphadenopathy (R), Lymphadenopathy (L), Stiff neck, Swelling/bruising, Tracheal deviation Respiratory: positive: Chest non-tender, No respiratory distress, Breath sounds nml. negative: Wheezes, Rales, Rhonchi Cardiovascular: positive: Regular rate & rhythm, No murmur, No gallop. negativ e: Irregularly irregular, Extrasystoles, Tachycardia, Bradycardia, JVD present, Systolic murmur, Diastolic murmur Peripheral Pulses: positive: 2+ Abdomen: positive: Non-tender, No organomegaly, Nml bowel sounds, No distention. negative: Tenderness, Guarding, Rebound Back: positive: Nml inspection. negative: CVA tenderness (R), CVA tenderness (L) Skin: positive: Color nml, No rash, Warm, Dry. negative: Cyanosis, Diaphoresis, Pallor Extremities: positive: Non-tender, Full ROM, Nml appearance. negative: Calf tenderness, Joint swelling, Mekhi's sign/cords Neurologic/Psychiatric: positive: Oriented x3, Motor nml, Sensation nml, Mood/affect nml. negative: Weakness, Sensory loss, Facial droop, Slurred/abnml speech, Depressed mood/affect - LABS Result Diagrams: 08/29/18 05:43 08/29/18 05:43 - SEPSIS Current Stage of Sepsis: Ruled out - FOLLOW UP Follow Up: you may followup your PCP in one week. You MRI reveals no acute intracranial abnormality. Should your symptoms return or worsen, you may present ER or call 911 for help. - TIME SPENT Time Spent in Discharge (Minutes): 55
[2018-08-29 15:53] VITALS: BP 131/84
== END 2018-08-29 16:00 | disposition home or self-care (01) | DRG 69 ==
LOC: EDUNIT# → ED 06:49 → MS2 09:12
PROVIDERS: ADMIT Nurse Practitioner Gerontology; ATTEND Nurse Practitioner Gerontology
DX: G45.9 Transient cerebral ischemic attack, unspecified (principal); I50.33 Acute on chronic diastolic (congestive) heart failure; R11.0 Nausea; I48.91 Unspecified atrial fibrillation; J45.909 Unspecified asthma, uncomplicated; I11.0 Hypertensive heart disease with heart failure; H81.09 Meniere's disease, unspecified ear; E78.5 Hyperlipidemia, unspecified; T46.6X6A Underdosing of antihyperlipidemic and antiarteriosclerotic drugs, initial encounter; H40.9 Unspecified glaucoma; K21.9 Gastro-esophageal reflux disease without esophagitis; Z66 Do not resuscitate; Z91.128 Patient's intentional underdosing of medication regimen for other reason; Z79.01 Long term (current) use of anticoagulants; Z87.11 Personal history of peptic ulcer disease; Z91.81 History of falling; Z79.899 Other long term (current) drug therapy
CPT/HCPCS: 36415; 70450; 70496; 70498; 70551; 71045; 80053; 80061; 83690; 83721; 83735; 83880; 84484; 85025; 85610; 85730; 93005; 93306; 96361; 96374; 96376; 99284; 99285

== ENCOUNTER 2018-08-30 05:58 | Outpatient (CLI) | payer MEDICARE, OTHER | END 2018-08-30 05:59 | disposition critical access hospital (66) | LOC: EMS 05:58 | PROVIDERS: ATTEND Surgery | DX: R42 Dizziness and giddiness (principal) | CPT/HCPCS: A0425; A0429 ==

== ENCOUNTER 2018-08-30 06:17 | Observation (INO) | payer MEDICARE, OTHER ==
[2018-08-30] MEDS ORDERED: MECLIZINE 12.5 MG TABLET PO STA (06:34)
[2018-08-30] MEDS ORDERED: NITROGLYCERIN SL 0.4 MG TABLET SL STA (06:44)
--- NOTE | 2018-08-30 06:44 | ED Physician Documentation ---
ED Addendum - Addendum Addendum: 08/30/18 06:35 saw pt upon arrival at 0620 hx from pt and daughter 83 f on xarelto for a fib recent TIA which presented with R sided weakness that cleared after several hr was admitted to [facility] for same had CTH CTA head and neck echo - no MRI inpt due to machine not up - but had as an oupt yesterday also had CHF and was diuresed was OK last night at 9 Pm awoke this morning and was too weak to sit up and felt the room was going round and round no focal weakness or numbness no vision hearing or speech abn no fall no recent fever cough NVD no bloody black BM no urinary sx no new meds at dc upon arrival in ED she developed 5/10 low left chest discomfort too ROS neg: fever chills ear pain hearing loss eye pain vision loss sore throat cough dyspnea abd pain NVD urinary sx numbness or weakness, speech abn pos: diffuse weakness, vertigo, chest pain, easy bleeding (xarelto) Exam VS noted A&O X 3 HEENT: PERRL (s/p cataract sugery), EOMI, no field cut, nl hearing, no facial droop Heart fairly reg but afib on tele Pulm:CTAB Abd: soft NT Ext: no edema no calf TTP Skin: no rash Neuro: A&O X 3 PERRL EOMI no nystagmus nl motor nl sensation nl speech NIHSS zero, when she tries to sit up she is wobbly and has trouble maintaining her balance, did not try to have her stand or walk as feel it is unsafe, nl finger nose norbert EKG time 02/14, rate 84, a fib, no acute ischemia Plan: 1) vertigo, recent TIA, could be central or periph, not a tPA candudte no matter what 2/2 xarelto and last nl 2100 yesterday - ordered CTH labs EKG 2) chest pain upon arrival - EKG s ischemia, ordered CE and CXR and gave usual AM isosorbide, no asa as on xarelto will turn over to day shift at 7 AM 08/30/18 06:46
[2018-08-30] MEDS ORDERED: ISOSORBIDE DINITRATE 10 MG TABLET PO STA (06:46)
[2018-08-30 07:35] LABS: BASOPHILS % (AUTO) 0.8 %; EOSINOPHILS # (AUTO) 0.2 10^3/uL (0.0-0.7); EOSINOPHILS % (AUTO) 2.9 %; HGB - HEMOGLOBIN 14.4 g/dL (12.0-16.0); LYMPHOCYTES % (AUTO) 16.3 %; MEAN CORPUSCULAR HEMOGLOBIN 30.5 pg (27.0-31.0); MEAN CORPUSCULAR HGB CONC 32.9 g/dL (32.0-36.0); MEAN CORPUSCULAR VOLUME 92.7 fL (81.0-99.0); MEAN PLATELET VOLUME 8.5 fL (7.9-10.8); MONOCYTES # (AUTO) 0.4 10^3/uL (0.0-1.0); MONOCYTES % (AUTO) 7.4 %; NEUTROPHILS # (AUTO) 4.3 10^3/uL (1.5-6.6); NEUTROPHILS % (AUTO) 72.6 %; PLT - PLATELET COUNT 256 10^3/uL (130-450); RED BLOOD COUNT 4.72 10^6/uL (4.20-5.40); RED CELL DISTRIBUTION WIDTH 14.7 % (12.0-15.0)
--- NOTE | 2018-08-30 07:44 | ED Physician Documentation ---
History of Present Illness - Stated complaint Stated Complaint: GENERAL WEAKNESS - Chief complaint Chief Complaint: Neuro - History obtained from History obtained from: Patient, Family - History of Present Illness Timing: How many days ago (3) - Additonal information Additional information: Previously independent 83-year-old female with a history of atrial fibrillation asthma and hypertension has had an episode 3 mornings ago of acute right-sided weakness and she was admitted to the hospital for care of a TIA. She had resolution of her symptoms was walking laps in the hospital quite well yesterday and went home yesterday afternoon. This morning on awakening she was unable to get herself out of bed to get to the bathroom and had to call her daughter-in- law. The ambulance was summoned to the house and the patient was brought to the hospital here today. She did have some dragging of her right foot but otherwise does not have a demonstrable right sided weakness. Review of Systems Constitutional: reports: Fatigue. denies: Fever, Chills, Myalgias Eyes: denies: Decreased vision Ears: denies: Ear pain Nose: denies: Rhinorrhea / runny nose, Congestion Throat: denies: Sore throat Cardiac: denies: Chest pain / pressure, Palpitations Respiratory: denies: Dyspnea, Cough GI: denies: Abdominal Pain, Nausea, Vomiting : denies: Dysuria, Frequency Skin: denies: Rash Musculoskeletal: denies: Neck pain, Back pain, Extremity pain, Extremity swelling (The patient usually has some peripheral edema in the left leg.) Neurologic: reports: Generalized weakness, Headache. denies: Focal weakness, Numbness, Difficulty speaking, Confused, Altered mental status, Head injury, LOC PD PAST MEDICAL HISTORY - Past Medical History Cardiovascular: Hypertension Respiratory: Asthma Neuro: None Endocrine/Autoimmune: None GI: GERD, Ulcers IP ATTORNEY: None : None HEENT: Glaucoma Psych: None Musculoskeletal: Osteoarthritis Derm: None - Past Surgical History General: Cholecystectomy, Appendectomy, Colonoscopy, EGD /IP ATTORNEY: Hysterectomy, Oophrectomy, Breast reduction HEENT: Cataracts - Present Medications Home Medications: Ambulatory Orders Medication Instructions Recorded Confirmed Acetaminophen [Tylenol] 650 mg PO Q6H PRN 08/27/18 08/27/18 Ascorbic Acid 500 mg PO DAILY 08/27/18 08/27/18 Famotidine 20 mg PO DAILY 08/27/18 08/27/18 Furosemide 20 mg PO DAILY 08/27/18 08/27/18 Ipratropium [place] 2 puffs NS TID PRN 08/27/18 08/27/18 Isosorbide Dinitrate 10 mg PO TID 08/27/18 08/27/18 Lisinopril 10 mg PO DAILY 08/27/18 08/27/18 Meclizine HCl [Motion Sickness 25 mg PO DAILY PRN 08/27/18 08/27/18 Relief] Metoprolol Tartrate [Lopressor] 25 mg PO QPM 08/27/18 08/27/18 Metoprolol Tartrate [Lopressor] 50 mg PO DAILY 08/27/18 08/27/18 Multivitamin [Multiple Vitamins] 1 each PO DAILY 08/27/18 08/27/18 Pantoprazole [Protonix] 20 mg PO DAILY 08/27/18 08/27/18 Rivaroxaban [Xarelto] 20 mg PO DAILY 08/27/18 08/27/18 Timolol 0.5% Ophth Drops [Timoptic 1 drops EACHEYE BID 08/27/18 08/27/18 0.5% Ophth Drops] Travoprost [Travatan Z] 1 drops EACHEYE QPM 08/27/18 08/27/18 Aspirin 81 mg PO DAILY 08/28/18 08/28/18 Melatonin 3 mg PO QPM 08/28/18 08/28/18 Zolpidem [Ambien] 2.5 - 5 mg PO HS PRN 08/28/18 08/28/18 Atorvastatin [Lipitor] 40 mg PO QPM #10 tablet 08/29/18 - Allergies Allergies/Adverse Reactions: Allergies Allergy/AdvReac Type Severity Reaction Status Date / Time Sulfa (Sulfonamide Allergy Severe Rash Verified 08/27/18 06:56 Antibiotics) codeine Allergy Intermediate muscle Verified 08/27/18 06:56 aches - Social History Does the pt smoke?: No Smoking Status: Never smoker Does the pt drink ETOH?: No Does the pt have substance abuse?: No - Immunizations Immunizations are current?: Yes - POLST Patient has POLST: No POLST Status: DNR PD ED PE NORMAL - Vitals Vital signs reviewed: Yes (hypertensive ) - General General: Alert and oriented X 3, No acute distress, Well developed/nourished - HEENT HEENT: Atraumatic, PERRL, EOMI, Ears normal, Moist mucous membranes, Pharynx benign, Dentition benign - Neck Neck: Supple, no meningeal sign, No bony TTP - Cardiac Cardiac: No murmur, Other (irregularly irregular rate and rhythm ) - Respiratory Respiratory: No respiratory distress, Clear bilaterally - Abdomen Abdomen: Soft, Non tender - Back Back: No CVA TTP, No spinal TTP - Derm Derm: Normal color, Warm and dry, No rash - Extremities Extremities: No deformity, No edema - Neuro Neuro: Alert and oriented X 3, bakery products checker 2-12 intact, No motor deficit, No sensory deficit, Normal speech Eye Opening: Spontaneous Motor: Obeys Commands Verbal: Oriented GCS Score: 15 - Psych Psych: Normal mood, Normal affect Results - Vitals Vitals: Vital Signs - 24 hr 08/30/18 08/30/18 08/30/18 06:21 07:42 08:30 Temperature 36.3 C L Heart Rate 91 83 71 Heart Rate [ Sitting] Heart Rate [ Standing] Heart Rate [ Supine] Respiratory 16 17 20 Rate Blood Pressure 151/105 H 138/100 H 127/88 H Blood Pressure [Sitting] Blood Pressure [Standing] Blood Pressure [Supine] O2 Saturation 99 96 97 08/30/18 08/30/18 08/30/18 08:37 08:44 08:48 Temperature Heart Rate 106 H Heart Rate [ Sitting] Heart Rate [ Standing] Heart Rate [ Supine] Respiratory 20 Rate Blood Pressure 121/76 67/55 L 94/79 Blood Pressure [Sitting] Blood Pressure [Standing] Blood Pressure [Supine] O2 Saturation 96 08/30/18 08/30/18 08/30/18 08:53 09:30 10:00 Temperature Heart Rate 99 104 H Heart Rate [ Sitting] Heart Rate [ Standing] Heart Rate [ Supine] Respiratory 19 18 Rate Blood Pressure 134/78 H 126/81 H 104/77 Blood Pressure [Sitting] Blood Pressure [Standing] Blood Pressure [Supine] O2 Saturation 98 98 08/30/18 08/30/18 10:28 11:09 Temperature Heart Rate 109 H Heart Rate [ 105 H Sitting] Heart Rate [ 111 H Standing] Heart Rate [ 99 Supine] Respiratory 24 Rate Blood Pressure 108/80 Blood Pressure 129/66 [Sitting] Blood Pressure 112/64 [Standing] Blood Pressure 120/80 [Supine] O2 Saturation 98 Oxygen O2 Source Room air - EKG (time done) 0618 Rate: Rate (enter#) (84) Rhythm: Atrial fibrillation Compare to prior EKG: Changed from prior EKG (SPT 08-27-18 rate has decreased) Computer interpretation: Agree with computer - Labs Labs: Laboratory Tests 08/30/18 08/30/18 08/30/18 07:00 07:00 07:00 WBC 6.0 RBC 4.72 Hgb 14.4 Hct 43.8 MCV 92.7 MCH 30.5 MCHC 32.9 RDW 14.7 Plt Count 256 MPV 8.5 Neut # (Auto) 4.3 Lymph # (Auto) 1.0 L [place] # (Auto) 0.4 Eos # (Auto) 0.2 Baso # (Auto) 0.0 Absolute Nucleated RBC 0.00 Nucleated RBC % 0.1 D-Dimer Sodium 136 Potassium 3.6 Chloride 95 L Carbon Dioxide 30 Anion Gap 11.0 BUN 14 Creatinine 0.6 Estimated GFR (MDRD) 95 Glucose 103 H Calcium 10.0 Troponin I < 0.04 Urine Color Urine Clarity Urine pH Ur Specific [place] Urine Protein Urine Glucose (UA) Urine Ketones Urine Occult Blood Urine Nitrite Urine Bilirubin Urine Urobilinogen Ur Leukocyte Esterase Ur Microscopic Review Urine Culture Comments 08/30/18 08/30/18 08:10 08:31 WBC RBC Hgb Hct MCV MCH MCHC RDW Plt Count MPV Neut # (Auto) Lymph # (Auto) [place] # (Auto) Eos # (Auto) Baso # (Auto) Absolute Nucleated RBC Nucleated RBC % D-Dimer < 200.0 L Sodium Potassium Chloride Carbon Dioxide Anion Gap BUN Creatinine Estimated GFR (MDRD) Glucose Calcium Troponin I Urine Color YELLOW Urine Clarity CLEAR Urine pH 8.0 H Ur Specific [place] 1.010 Urine Protein NEGATIVE Urine Glucose (UA) NEGATIVE Urine Ketones NEGATIVE Urine Occult Blood NEGATIVE Urine Nitrite NEGATIVE Urine Bilirubin NEGATIVE Urine Urobilinogen 0.2 (NORMAL) Ur Leukocyte Esterase NEGATIVE Ur Microscopic Review NOT INDICATED Urine Culture Comments NOT INDICATED - Rads (name of study) CT head without Radiology: Prelim report reviewed (Impression: No acute intracranial abnormality.), EMP read indepedently, See rad report 2 view chest Radiology: Prelim report reviewed (Impression: No focal consolidation.), EMP read indepedently, See rad report Procedures - IVC sono (time) 0557 Bedside IVC sono: IVC measures (cm) (1.65), IVC collapsed c insp (cm) (1.51), High CVP, Other (R ventricle dilation) PD MEDICAL DECISION MAKING - ED course Complexity details: reviewed old records, reviewed results, re-evaluated patient, considered differential, d/w patient, d/w family ED course: 83 y/o female with a history of afib on xaralto has had a recent admission for a TIA resulting in right sided weakness and associated with an exacerbation of CHF has successfully diuresed in the hospital and returned to home asymptomatic and awoke this morning with weakness and inability to get out of bed. Her peripheral edema is resolved today but her IVC still shows a plethoric vessel indicating that she is not "over diuresed" She does develop some chest pain in the ED and she is given a dose of nitro and her blood pressure drops and she requires trendelenberg positioning and a 300ml saline bolus. She recovers from this but continues to have weakness/dizziness that is not typical and not resolving. She fails the beside road test and I have asked the hospitalist to admit to observation. Departure - Departure Disposition: ED Place in Observation Clinical Impression: Weakness
[2018-08-30 07:49] LABS: CREATININE 0.6 mg/dL (0.4-1.0)
--- NOTE | 2018-08-30 07:51 | XRAY Report ---
Reason: chest pain Procedure Date: 08/30/2018 Accession Number: [id number] / [id number] Procedure: XR - Chest 2 View X-Ray CPT Code: 87220 FULL RESULT: EXAM: CHEST RADIOGRAPHY EXAM DATE: 08/30/2018 07:44 AM. CLINICAL HISTORY: Chest pain. COMPARISON: None. TECHNIQUE: 2 views. FINDINGS: Lungs/Pleura: No focal opacities evident. No pleural effusion. No pneumothorax. Normal volumes. Abnormal elevation of the left hemidiaphragm. Mediastinum: Heart and mediastinal contours are unremarkable. Other: Moderate to severe degenerative changes in the right acromioclavicular joint and moderate degenerative changes in the left acromioclavicular joint. IMPRESSION: No focal consolidation. RADIA
--- NOTE | 2018-08-30 07:54 | CT Report ---
Reason: recent TIA now vertigo, last nl 2100 yest Procedure Date: 08/30/2018 Accession Number: [id number] / [id number] Procedure: CT - Head W/O CPT Code: FULL RESULT: EXAM: CT HEAD EXAM DATE: 08/30/2018 07:07 AM. CLINICAL HISTORY: Recent TIA now vertigo, last nl 2100 yest. COMPARISON: None. TECHNIQUE: Multiaxial CT images were obtained from the foramen magnum to the vertex. Reformats: Sagittal and coronal. IV contrast: None. In accordance with CT protocol optimization, one or more of the following dose reduction techniques were utilized for this exam: automated exposure control, adjustment of mA and/or KV based on patient size, or use of iterative reconstructive technique. FINDINGS: Parenchyma: No intraparenchymal hemorrhage. No evidence of mass, midline shift, or CT findings of infarction. Villafana-white differentiation is distinct. Extraaxial Spaces: Normal for age. No subdural or epidural collections identified. Ventricles: Normal in size and position. Sinuses and Orbits: Imaged paranasal sinuses, orbits, and mastoids show no significant abnormality. Bones: No evidence of fracture or calvarial defect. Other: None. IMPRESSION: No acute intracranial abnormality. RADIA
[2018-08-30 08:28] LABS: BILIRUBIN,URINE NEGATIVE (NEGATIVE); GLUCOSE, URINE (UA) NEGATIVE (NEGATIVE); KETONES,URINE (UA) NEGATIVE (NEGATIVE); LEUKOCYTE ESTERASE, URINE NEGATIVE (NEGATIVE); NITRITE,URINE NEGATIVE (NEGATIVE); OCCULT BLOOD,URINE NEGATIVE (NEGATIVE); PROTEIN,URINE NEGATIVE (NEGATIVE); UROBILINOGEN,URINE 0.2 (NORMAL) E.U./dL (NORMAL)
[2018-08-30 08:29] LABS: CLARITY,URINE CLEAR (CLEAR)
[2018-08-30] MEDS ORDERED: ONDANSETRON 4 MG/2 ML VIAL IVP PRN (12:00)
[2018-08-30] MEDS ORDERED: SODIUM CHLORIDE FLUSH 0.9% 10 ML SYRINGE IVP PRN (12:00)
--- NOTE | 2018-08-30 12:04 | HISTORY & PHYSICAL EXAMINATION ---
Chief Complaint - Chief Complaint Chief Complaint: inability to walk, weakness History of Present Illness - Admitted From Admitted From:: ED - History Obtained From Records Reviewed: yes History obtained from: patient, chart review Exam Limitations: none - History of Present Illness HPI Comment/Other: Nirav Mcclendon is an 83-year old female with a past medical history of atrial fib on Xarelto, asthma, HTN, GERD, ulcers, Glaucoma, and osteoarthritis. She was just discharged yesterday after being admitted for TIA symptoms including right-sided weakness and shortness of breath upon awakening, which was ruled out for any acute findings. Since arriving home, she has become profoundly generally weak with an inability to ambulate. She was given atorvastatin as per TIA protocol, which at first she had no side effects and was in fact ambulating with her daughter in the halls just prior to discharge. Since arriving home, she went to bed and has not been able to get back out of bed. EMS was called as the patient could not ambulate and lives independently. Once in the ED she continued to show signs of profound weakness and on my exam had equal strength, but was generally fatigued. She denied chest pain, shortness of breath, a new rash, a productive cough, or new dizziness. She believes that about 10 years ago she was prescribed a "cholesterol pill" that made her have severe muscle cramps but could not think of the name of it. Vital signs showed mild hypertension with a blood pressure of 127/88, with otherwise normal values. Labs showed a negative troponin, normal CBC, normal BMP, and a normal urine sa mple. A IVC measurement in the ED did not indicate dehydration. She will be admitted for observation to rule out other causes of this new weakness, but statin intolerance is the most likely cause. History - Past Medical History Cardiovascular: reports: Congestive heart failure, Hypertension, High cholesterol, Atrial fibrillation, Murmur, Arrhythmia Respiratory: reports: Asthma, Shortness of breath Neuro: reports: Dementia, TIA, Peripheral neuropathy Endocrine/Autoimmune: reports: None GI: reports: GERD, Ulcers METAL MILLING MACHINE OPERATOR: reports: None : reports: Nocturia, Frequency HEENT: reports: Chronic vision loss, Glaucoma, Chronic sinusitis, Chronic hearing loss Psych: reports: Depression Musculoskeletal: reports: Osteoarthritis Derm: reports: None MRSA Hx?: No - Past Surgical History General: reports: Cholecystectomy, Appendectomy, Colonoscopy, EGD /METAL MILLING MACHINE OPERATOR: reports: Hysterectomy, Oophrectomy, Breast reduction HEENT: reports: Cataracts - Family & Social History Family History: Mother: , CVA/TIA, Father: , CAD, Cancer Living arrangement: At home Living Situation: Alone Social History Notes: The patient lives independently and has 3 grown children with several grand children. She uses just a cane for ambulation and denies recent falls. She denies tobacco, alcohol or drug use. She wishes to be a DNR. - Substance History Use: Uses substance without health or social issues: NONE Abuse: Recurrent use of substance despite neg consequences: NONE Dependence: Experiences withdrawal or developed tolerances: NONE - POLST Patient has POLST: Yes POLST Status: DNR Meds/Allgy - Home Medications Home Medications: Ambulatory Orders Medication Instructions Recorded Confirmed Acetaminophen [Tylenol] 650 mg PO Q6H PRN 08/27/18 08/30/18 Ascorbic Acid 500 mg PO DAILY 08/27/18 08/30/18 Famotidine 20 mg PO DAILY 08/27/18 08/30/18 Furosemide 20 mg PO DAILY 08/27/18 08/30/18 Ipratropium [place] 2 puffs NS TID PRN 08/27/18 08/30/18 Isosorbide Dinitrate 10 mg PO TID 08/27/18 08/30/18 Lisinopril 10 mg PO DAILY 08/27/18 08/30/18 Meclizine HCl [Motion Sickness 25 mg PO DAILY PRN 08/27/18 08/30/18 Relief] Metoprolol Tartrate [Lopressor] 25 mg PO QPM 08/27/18 08/30/18 Metoprolol Tartrate [Lopressor] 50 mg PO DAILY 08/27/18 08/30/18 Multivitamin [Multiple Vitamins] 1 each PO DAILY 08/27/18 08/30/18 Pantoprazole [Protonix] 20 mg PO DAILY 08/27/18 08/30/18 Rivaroxaban [Xarelto] 20 mg PO DAILY 08/27/18 08/30/18 Timolol 0.5% Ophth Drops [Timoptic 1 drops EACHEYE BID 08/27/18 08/30/18 0.5% Ophth Drops] Travoprost [Travatan Z] 1 drops EACHEYE QPM 08/27/18 08/30/18 Aspirin 81 mg PO DAILY 08/28/18 08/30/18 Melatonin 3 mg PO QPM 08/28/18 08/30/18 Zolpidem [Ambien] 2.5 - 5 mg PO HS PRN 08/28/18 08/30/18 Ezetimibe [Zetia] 10 mg PO DAILY #30 tablet 08/31/18 - Allergies Allergies/Adverse Reactions: Allergies Allergy/AdvReac Type Severity Reaction Status Date / Time Sulfa (Sulfonamide Allergy Severe Rash Verified 08/27/18 06:56 Antibiotics) codeine Allergy Intermediate muscle Verified 08/27/18 06:56 aches Review of Systems - Constitutional Constitutional: reports: Fatigue, Poor appetite, Weight loss - Eyes Eyes: reports: Vision loss, Corrective lenses - Ears, Nose & Throat Ears, Nose & Throat: reports: Hearing loss - Cardiovascular Cariovascular: reports: Irregular heart rate, Lightheadedness, Syncope, Exertional dyspnea, Decr. exercise tolerance - Respiratory Respiratory: reports: Cough - Gastrointestinal Gastrointestinal: reports: Reflux/heartburn - Genitourinary Genitourinary: reports: Dysuria, Nocturia - Musculoskeletal Musculoskeletal: reports: Muscle aches, Stiffness, Limited range of motion, Muscle weakness, Joint swelling - Integumentary Integumentary: reports: Dryness - Neurological Neurological: reports: General weakness, Memory problems, Pre-existing deficit - Psychiatric Psychiatric: reports: Depression - Hematologic/Lymphatic Hematologic/Lymphatic: reports: Anemia, Recurrent infections - All Other Systems All Other Systems: reports: Reviewed and negative Prior Level of Functionality: independent with a walker, no recent falls. Exam - Vital Signs Reviewed Vital Signs: Yes Vital Signs: Vital Signs x48h Temp Pulse Pulse Pulse Pulse Resp BP 08/30/18 11:09 105 H 111 H 99 08/30/18 10:28 109 H 24 108/80 08/30/18 10:00 104 H 18 104/77 08/30/18 09:30 99 19 126/81 H 08/30/18 08:53 134/78 H 08/30/18 08:48 94/79 08/30/18 08:44 67/55 L 08/30/18 08:37 106 H 20 121/76 08/30/18 08:30 71 20 127/88 H 08/30/18 07:42 83 17 138/100 H 08/30/18 06:21 36.3 C L 91 16 151/105 H BP BP BP Pulse Ox 08/30/18 11:09 129/66 112/64 120/80 08/30/18 10:28 98 08/30/18 10:00 98 08/30/18 09:30 98 08/30/18 08:53 08/30/18 08:48 08/30/18 08:44 08/30/18 08:37 96 08/30/18 08:30 97 08/30/18 07:42 96 08/30/18 06:21 99 - Physical Exam General Appearance: positive: Alert, Mild distress Eyes Bilateral: positive: PERRL ENT: positive: Pharynx nml, No signs of dehydration Neck: positive: Thyroid nml, No JVD, Trachea midline Respiratory: positive: Chest non-tender, No respiratory distress, Breath sounds nml Cardiovascular: positive: No gallop, Irregularly irregular, Systolic murmur, Decreased pulse(s) Peripheral Pulses: positive: 1+ Abdomen: positive: Non-tender, Nml bowel sounds Back: positive: Nml inspection Skin: positive: No rash, Warm, Dry, Pallor Extremities: positive: Non-tender, Full ROM, No pedal edema Neurologic/Psychiatric: positive: Oriented x3, CN's nml (2-12), Motor nml, Sensation nml, Disoriented to time, Weakness, Sensory loss, Slurred/abnml speech (baseline sluggish speech, slow responses), Depressed mood/affect Reflexes: Bicep (R): 2+, Bicep (L): 2+ Sepsis Event Note (H) - Evaluation Current Stage of Sepsis: Ruled out Conclusion/Plan - Problem List (1) Weakness Conclusion/Plan: The patient complained of weakness ever since return home from her last hospital stay just yesterday. She states that normally she is up independently at home with her walker/cane, but found herself so weak early this morning to the point of not being able to lift her arms or legs, so called EMS. On my exam, she continues to be weak, and does not feel that she could walk across the room. Plan: PT prior to discharge if no improvement by the AM. (2) Statin intolerance Conclusion/Plan: The patient's daughter in law who is a nurse admits to her quality improvement manager starting her on low dose statin at 10mg only to be taken on MWF each week. She admits to the patient not doing this as all of the pills are still in her pill bottle. She can remember that about 10 years a similar thing happened, in which she had muscle weakness. During her last admission she was given a generous amount of statin as per TIA protocol and was sent home with 40mg daily. Soon after getting home, she noti ahsan profound muscle weakness and states she was really on home a few hours before calling EMS due to her inability to ambulate. Plan: Discontinue statin, add statins to allergy list, start Zetia, gentle fluid bolus tonight to improve drug clearance. (3) Chronic atrial fibrillation Conclusion/Plan: The patient was prescribed Metoprolol tartrate, which is not the most ideal way to treat this chronic condition. I have changed this to succinate to start ton ight. Plan: Continue telemetry, send new prescriptions to the pharmacy. (4) Hyperlipidemia Conclusion/Plan: The patient has a known history of this and was supposed to start on 10mg of a statin only Wednesday, Wednesday's and Wednesday's per her regular quality improvement manager. She also recalls having an intolerance to statins in the past. Plan: Start Zetia, and monitor for intolerance. (5) Pulmonary hypertension Conclusion/Plan: The most recent echocardiogram preliminary results from 08/27/18 show a RVSP at rest of 55 mm Hg that is slightly worse from a previous echo. She has evidence of this and the ideal treatment would be spironolactone rather than lasix. This will be started at a very low dose tomorrow prior to discharge. Plan: Continue to monitor for fluid overload. (6) Do not intubate, cardiopulmonary resuscitation (CPR)-only code status Conclusion/Plan: The patient has a POLST form that confirms this and she has been a DNR. Plan: Continue DNR status. - Lab Results Lab results reviewed: Yes Fish Bones: 08/31/18 05:20 08/31/18 05:20 - Diagnostic Imaging Results Diagnostic Imaging Results: positive: Final report reviewed Diagnostic Imaging Results Comments: EXAM: CT HEAD EXAM DATE: 08/30/2018 07:07 AM IMPRESSION: No acute intracranial abnormality. Villafana-white differentiation is distinct. EXAM: CHEST RADIOGRAPHY EXAM DATE: 08/30/2018 07:44 AM. IMPRESSION: No focal consolidation. - EKG Results EKG Interpreted Independently: Yes EKG Comparison: Unchanged from prior EKG (atrial fibrillation, 80's rate controlled.) Core Measures - Anticipated LOS I expect patient to be DC'd or transferred within 96 hours.: Yes - DVT/VTE - Prophylaxis VTE/DVT Device ordered at admit?: Yes VTE/DVT Prophylaxis med ordered at admit?: No Not Ordered - Medical Reason: Contraindicated - Stroke - Rehab Assessment Rehab services assessment to be ordered?: No Not Ordered - Medical Reason: Contraindicated - AMI - Statin at Admit Aspirin Prescribed on Admit: No Not Ordered - Medical Reason: Contraindicated
[2018-08-30] MEDS ORDERED: IPRATROPIUM BROMIDE NAS PRN (16:16)
[2018-08-30] MEDS ORDERED: METOPROLOL SUCCINATE 25 MG TABLET PO SCH (17:00)
[2018-08-30] MEDS: RIVAROXABAN 10 MG TABLET PO SCH (17:35)
[2018-08-30] MEDS ORDERED: SODIUM CHLORIDE 0.9% 500 ML IV ONE (17:37)
[2018-08-30] MEDS: SODIUM CHLORIDE FLUSH 0.9% 10 ML SYRINGE IVP SCH ×2 (17:38→23:30)
[2018-08-30] MEDS: EZETIMIBE 10 MG TABLET PO SCH ×2 (18:30→21:41)
[2018-08-30] MEDS ORDERED: ZOLPIDEM 5 MG TABLET PO PRN (19:27)
[2018-08-30] MEDS ORDERED: Melatonin [Melatonin] 3 MG PO SCH (21:00)
[2018-08-30] MEDS ORDERED: TRAVOPROST 0.004% OPHTH DROPS 2.5 ML EACHEYE SCH (21:00)
[2018-08-30] MEDS: ISOSORBIDE DINITRATE 10 MG TABLET PO SCH (21:42)
[2018-08-30] MEDS ORDERED: ACETAMINOPHEN 325 MG TABLET PO PRN (21:44)
[2018-08-30] MEDS: TIMOLOL 0.5% OPHTH DROPS EACHEYE SCH (21:54)
[2018-08-30] MEDS ORDERED: ISOSORBIDE DINITRATE 10 MG TABLET PO SCH (22:00)
[2018-08-31 05:41] LABS: BASOPHILS % (AUTO) 0.6 %; EOSINOPHILS # (AUTO) 0.2 10^3/uL (0.0-0.7); EOSINOPHILS % (AUTO) 3.4 %; HGB - HEMOGLOBIN 13.3 g/dL (12.0-16.0); LYMPHOCYTES # (AUTO) 1.4 10^3/uL (1.5-3.5); MEAN CORPUSCULAR HEMOGLOBIN 30.5 pg (27.0-31.0); MEAN CORPUSCULAR HGB CONC 32.7 g/dL (32.0-36.0); MEAN CORPUSCULAR VOLUME 93.3 fL (81.0-99.0); MEAN PLATELET VOLUME 7.8 fL (7.9-10.8); MONOCYTES # (AUTO) 0.5 10^3/uL (0.0-1.0); MONOCYTES % (AUTO) 10.5 %; NEUTROPHILS % (AUTO) 58.5 %; PLT - PLATELET COUNT 242 10^3/uL (130-450); RED BLOOD COUNT 4.37 10^6/uL (4.20-5.40); WHITE BLOOD COUNT 5.2 x10^3/uL (4.8-10.8)
[2018-08-31 05:51] LABS: ALBUMIN 3.5 g/dL (3.2-5.5); ALBUMIN/GLOBULIN RATIO 1.3 (1.0-2.2); CALCIUM 9.5 mg/dL (8.5-10.3); CREATININE 0.5 mg/dL (0.4-1.0); MAGNESIUM 1.5 mg/dL (1.7-2.8); TOTAL PROTEIN 6.2 g/dL (6.7-8.2)
[2018-08-31] MEDS ORDERED: PANTOPRAZOLE 40 MG TABLET PO SCH (07:00)
[2018-08-31] MEDS ORDERED: MAGNESIUM OXIDE 400 MG TABLET PO SCH (08:00)
[2018-08-31] MEDS: ISOSORBIDE DINITRATE 10 MG TABLET PO SCH ×3 (08:49→16:59)
[2018-08-31] MEDS: METOPROLOL SUCCINATE 25 MG TABLET PO SCH ×2 (08:49→16:59)
[2018-08-31] MEDS: TIMOLOL 0.5% OPHTH DROPS EACHEYE SCH (08:50)
[2018-08-31] MEDS ORDERED: POLYETHYLENE GLYCOL 3350 17 GM PACKET PO SCH (09:00)
[2018-08-31] MEDS ORDERED: ASCORBIC ACID CHEW 500 MG TABLET PO SCH (09:00)
[2018-08-31] MEDS ORDERED: ASPIRIN CHEW 81 MG TABLET PO SCH (09:00)
[2018-08-31] MEDS ORDERED: FAMOTIDINE 20 MG TABLET PO SCH (09:00)
[2018-08-31] MEDS ORDERED: SPIRONOLACTONE 25 MG TABLET PO SCH (13:52)
[2018-08-31] MEDS: SODIUM CHLORIDE FLUSH 0.9% 10 ML SYRINGE IVP SCH (14:47)
--- NOTE | 2018-08-31 15:29 | Discharge Plan ---
Discharge Plan Disposition: 01 Home, Self Care Condition: Good Prescriptions: Ezetimibe [Zetia] 10 mg PO DAILY #30 tablet Magnesium Oxide [Mag Ox] 400 mg PO DAILYWM #30 tablet Metoprolol Succinate [Toprol Xl] 37.5 mg PO BIDWM #90 tablet Spironolactone [Aldactone] 12.5 mg PO DAILY #15 tablet Diet: Regular Activity Restrictions: Activity as Tolerated Assistance Devices: Walker, Cane Weight Bearing: Full Weight Instruction Topics: Ezetimibe Tablets Additional Instructions or Follow Up instructions: You were admitted for profound weakness and the most likely cause of this was due to statin intolerance. You were started on a medication called Zetia, which works similar to a statin, but it is a different drug class and may be better tolerated. In reviewing your last echocardiogram, you were found to have pulmonary hypertension (right sided pressure), so your diuretic has been changed from lasix to a more gentle medication that specifically treats this condition called Spironolactone. The metoprolol that you were prescribed was changed to Succinate to keep your heart rate and blood pressure more steady and efficient. Your magnesium was also low, which is likely caused by your acid reflux medication (proton pump inhibitor), so a prescription for magnesium was sent to the pharmacy. STOP: Metoprolol tartrate furosemide atorvostatin Please see your PCP within on week, and your other specialists as planned. Both your PCP and Dr. Bright-Cardiology will get a copy of my detailed discharge summary. No Smoking: If you smoke, Please STOP! Call for help. Follow-up with: Ronen Singh MD [Primary Care Provider] -
--- NOTE | 2018-08-31 15:39 | DISCHARGE SUMMARY ---
Discharge Summary Admit Date: 08/30/18 Discharge Date: 08/31/18 Discharging Provider: GRAYSON Lyons Primary Care Provider: Ronen Pacheco Code Status: Do Not Attempt Resuscitation Condition at Discharge: Good Discharge Disposition: Home, Self Care - DIAGNOSES Admission Diagnoses: Weakness (R53.1) Other specified health status (Z78.9) Chronic atrial fibrillation (I48.2) Hyperlipidemia, unspecified (E78.5) Pulmonary hypertension, unspecified (I27.20) Do not resuscitate (Z66) Discharge Diagnoses with Status of Each Condition: Weakness (R53.1) Statin intolerance (Z78.9) Chronic atrial fibrillation (I48.2) Hyperlipidemia (E78.5) Pulmonary hypertension (I27.20) GERD (gastroesophageal reflux disease) (K21.9) Hypomagnesemia (E83.42) Do not intubate, perform CPR, or defibrillate (Z66) - HPI History of Present Illness: Nirav Mcclendon is an 83-year old female with a past medical history of atrial fib on Xarelto, asthma, HTN, GERD, ulcers, Glaucoma, and osteoarthritis. She was just discharged yesterday after being admitted for TIA symptoms including right-sided weakness and shortness of breath upon awakening, which was ruled out for any acute findings. Since arriving home, she has become profoundly generally weak with an inability to ambulate. She was given atorvastatin as per TIA protocol, which at first she had no side effects and was in fact ambulating with her daughter in the halls just prior to discharge. Since arriving home, she went to bed and has not been able to get back out of bed. EMS was called as the patient could not ambulate and lives independently. Once in the ED she continued to show signs of profound weakness and on my exam had equal strength, but was generally fatigued. She denied chest pain, shortness of breath, a new rash, a productive cough, or new dizziness. She believes that about 10 years ago she was prescribed a "cholesterol pill" that made her have severe muscle cramps but could not think of the name of it. Vital signs showed mild hypertension with a blood pressure of 127/88, with otherwise normal values. Labs showed a negative troponin, normal CBC, normal BMP, and a normal urine sample. A IVC measurement in the ED did not indicate dehydration. She will be admitted for observation to rule out other causes of this new weakness, but statin intolerance is the most likely cause. - HOSPITAL COURSE Hospital Course: The patient's weakness was nearly resolved at the time of discharge and this acute condition was likely related to her statin intolerance, which has been added to her allergy list. She was started on Zetia and her metoprolol was changed to succinate for better heart rate control. She was taken off lasix that was changed to Spironolactone to appropriately treat her pulmonary hypertension that was shown to be worsened in her last echo. She was medically stable at the time of discharge and was taken via private car home by her son and [id number] who I personally reviewed the medication changes. - ALLERGIES Allergies/Adverse Reactions: Allergies Allergy/AdvReac Type Severity Reaction Status Date / Time Sulfa (Sulfonamide Allergy Severe Rash Verified 08/27/18 06:56 Antibiotics) codeine Allergy Intermediate muscle Verified 08/27/18 06:56 aches - MEDICATIONS Home Medications: Ambulatory Orders Medication Instructions Recorded Confirmed Acetaminophen [Tylenol] 650 mg PO Q6H PRN 08/27/18 08/30/18 Ascorbic Acid 500 mg PO DAILY 08/27/18 08/30/18 Famotidine 20 mg PO DAILY 08/27/18 08/30/18 Ipratropium [place] 2 puffs NS TID PRN 08/27/18 08/30/18 Isosorbide Dinitrate 10 mg PO TID 08/27/18 08/30/18 Lisinopril 10 mg PO DAILY 08/27/18 08/30/18 Meclizine HCl [Motion Sickness 25 mg PO DAILY PRN 08/27/18 08/30/18 Relief] Multivitamin [Multiple Vitamins] 1 each PO DAILY 08/27/18 08/30/18 Rivaroxaban [Xarelto] 20 mg PO DAILY 08/27/18 08/30/18 Timolol 0.5% Ophth Drops [Timoptic 1 drops EACHEYE BID 08/27/18 08/30/18 0.5% Ophth Drops] Travoprost [Travatan Z] 1 drops EACHEYE QPM 08/27/18 08/30/18 Aspirin 81 mg PO DAILY 08/28/18 08/30/18 Melatonin 3 mg PO QPM 08/28/18 08/30/18 Zolpidem [Ambien] 2.5 - 5 mg PO HS PRN 08/28/18 08/30/18 Ezetimibe [Zetia] 10 mg PO DAILY #30 tablet 08/31/18 Magnesium Oxide [Mag Ox] 400 mg PO DAILYWM #30 tablet 08/31/18 Metoprolol Succinate [Toprol Xl] 37.5 mg PO BIDWM #90 tablet 08/31/18 Spironolactone [Aldactone] 12.5 mg PO DAILY #15 tablet 08/31/18 - PHYSICAL EXAM AT DISCHARGE General Appearance: positive: No acute distress, Alert Eyes Bilateral: positive: PERRL ENT: positive: Pharynx nml, No signs of dehydration Neck: positive: Thyroid nml, No JVD, Trachea midline Respiratory: positive: Chest non-tender, No respiratory distress, Breath sounds nml, Other (bilateral scattered crackles) Cardiovascular: positive: No gallop, Irregularly irregular, Systolic murmur Peripheral Pulses: positive: 1+ Abdomen: positive: Non-tender, Nml bowel sounds, Other (rounded, soft) Back: positive: Nml inspection Skin: positive: Color nml, No rash, Warm, Dry Extremities: positive: Non-tender, Full ROM, Nml appearance, Pedal edema (mild- dependent) Neurologic/Psychiatric: positive: Oriented x3, CN's nml (2-12), Motor nml, Sensation nml, Weakness, Depressed mood/affect Reflexes: Bicep (R): 3+, Bicep (L): 3+ - LABS Result Diagrams: 08/31/18 05:20 08/31/18 05:20 - DIAGNOSTIC IMAGING Diagnostic Imaging Results: Final report reviewed Diagnostic Imaging Results Comments: EXAM: CT HEAD EXAM DATE: 08/30/2018 07:07 AM. IMPRESSION: No acute intracranial abnormality. EXAM: CHEST RADIOGRAPHY EXAM DATE: 08/30/2018 07:44 AM. IMPRESSION: No focal consolidation. - SEPSIS Current Stage of Sepsis: Ruled out - FOLLOW UP Follow Up: Disposition: Home Condition: Good Prescriptions: Ezetimibe [Zetia] 10 mg PO DAILY #30 tablet Magnesium Oxide [Mag Ox] 400 mg PO DAILYWM #30 tablet Metoprolol Succinate [Toprol Xl] 37.5 mg PO BIDWM #90 tablet Spironolactone [Aldactone] 12.5 mg PO DAILY #15 tablet Diet: Regular Activity Restrictions: Activity as Tolerated Assistance Devices: Walker, Cane Weight Bearing: Full Weight Additional Instructions or Follow Up instructions: You were admitted for profound weakness and the most likely cause of this was due to statin intolerance. You were started on a medication called Zetia, which works similar to a statin, but it is a different drug class and may be better tolerated. In reviewing your last echocardiogram, you were found to have pulmonary hypertension (right sided pressure), so your diuretic has been changed from lasix to a more gentle medication that specifically treats this condition called Spironolactone. The metoprolol that you were prescribed was changed to Succinate to keep your heart rate and blood pressure more steady and efficient. Your magnesium was also low, which is likely caused by your acid reflux medication (proton pump inhibitor), so a prescription for magnesium was sent to the pharmacy. STOP: Metoprolol tartrate furosemide atorvostatin Please see your PCP within on week, and your other specialists as planned. Both your PCP and Dr. Bright-Cardiology will get a copy of my detailed discharge summary. - TIME SPENT Time Spent in Discharge (Minutes): 60
[2018-08-31 16:42] VITALS: BP 136/86
[2018-08-31] MEDS: RIVAROXABAN 10 MG TABLET PO SCH (17:00)
== END 2018-08-31 17:05 | disposition home or self-care (01) ==
LOC: EDUNIT# → ED 06:17 → SUATTDRO 06:17 → OBS 12:00
PROVIDERS: ADMIT Nurse Practitioner; ATTEND Nurse Practitioner
DX: R53.1 Weakness (principal); T46.6X5A Adverse effect of antihyperlipidemic and antiarteriosclerotic drugs, initial encounter; I48.2 Chronic atrial fibrillation; I11.0 Hypertensive heart disease with heart failure; I50.9 Heart failure, unspecified; I27.20 Pulmonary hypertension, unspecified; E78.5 Hyperlipidemia, unspecified; Z79.01 Long term (current) use of anticoagulants; K21.9 Gastro-esophageal reflux disease without esophagitis; R07.9 Chest pain, unspecified; E83.42 Hypomagnesemia; Z66 Do not resuscitate; J45.909 Unspecified asthma, uncomplicated; Z86.73 Personal history of transient ischemic attack (TIA), and cerebral infarction without residual deficits
CPT/HCPCS: 36415; 70450; 71046; 80048; 80053; 81003; 82550; 83735; 84443; 84484; 85025; 85379; 93005; 96360; 96361; 99284; A9270; G0378; 81001; 87086; 99285

== ENCOUNTER 2018-09-01 07:00 | Outpatient (CLI) | payer MEDICARE, OTHER | END 2018-09-01 07:01 | disposition critical access hospital (66) | LOC: EMS 07:00 | PROVIDERS: ATTEND Surgery | DX: R42 Dizziness and giddiness (principal) | CPT/HCPCS: A0425; A0429 ==

== ENCOUNTER 2018-09-01 07:21 | Emergency (ER) | payer MEDICARE, OTHER ==
--- NOTE | 2018-09-01 07:38 | ED Physician Documentation ---
History of Present Illness - Stated complaint Stated Complaint: LIGHTHEADED - Chief complaint Chief Complaint: General - Additonal information Additional information: hx from pt family EMR 83 female admitted to twice in the last 4 days first for R sied weakness which resolved dx TIA was dced then returned with generalized weakness and unsteadiness and was readmitted has had CT scans MRI echo etc change lasix to spironolactone change lipitor to zetia change metoprolol tartrate to succinate was doing better up and ambulating and was dced yesterday at 430PM then awoke this AM weak and wobbly and unable to get up again no fever cough NVD no ALONOZ CP AP no focal numbness or weakness Review of Systems Constitutional: denies: Fever, Chills Cardiac: denies: Chest pain / pressure Respiratory: denies: Dyspnea, Cough GI: denies: Abdominal Pain, Nausea, Vomiting : denies: Dysuria Neurologic: reports: Generalized weakness. denies: Focal weakness, Numbness, Headache, Head injury Endocrine: reports: Easy bruising / bleeding (xarelto) Immunocompromised: denies: Immunocompromised PD PAST MEDICAL HISTORY - Past Medical History Cardiovascular: Congestive heart failure, Hypertension, High cholesterol, Atrial fibrillation, Murmur, Arrhythmia Respiratory: Asthma, Shortness of breath Neuro: Dementia, TIA, Peripheral neuropathy Endocrine/Autoimmune: None GI: GERD, Ulcers QUANTITATIVE SOFTWARE ENGINEER: None : Nocturia, Frequency HEENT: Chronic vision loss, Glaucoma, Chronic sinusitis, Chronic hearing loss Psych: Depression Musculoskeletal: Osteoarthritis Derm: None - Past Surgical History General: Cholecystectomy, Appendectomy, Colonoscopy, EGD /QUANTITATIVE SOFTWARE ENGINEER: Hysterectomy, Oophrectomy, Breast reduction HEENT: Cataracts - Present Medications Home Medications: Ambulatory Orders Medication Instructions Recorded Confirmed Acetaminophen [Tylenol] 650 mg PO Q6H PRN 08/27/18 08/30/18 Ascorbic Acid 500 mg PO DAILY 08/27/18 08/30/18 Famotidine 20 mg PO DAILY 08/27/18 08/30/18 Ipratropium [place] 2 puffs NS TID PRN 08/27/18 08/30/18 Isosorbide Dinitrate 10 mg PO TID 08/27/18 08/30/18 Lisinopril 10 mg PO DAILY 08/27/18 08/30/18 Meclizine HCl [Motion Sickness 25 mg PO DAILY PRN 08/27/18 08/30/18 Relief] Multivitamin [Multiple Vitamins] 1 each PO DAILY 08/27/18 08/30/18 Rivaroxaban [Xarelto] 20 mg PO DAILY 08/27/18 08/30/18 Timolol 0.5% Ophth Drops [Timoptic 1 drops EACHEYE BID 08/27/18 08/30/18 0.5% Ophth Drops] Travoprost [Travatan Z] 1 drops EACHEYE QPM 08/27/18 08/30/18 Aspirin 81 mg PO DAILY 08/28/18 08/30/18 Melatonin 3 mg PO QPM 08/28/18 08/30/18 Zolpidem [Ambien] 2.5 - 5 mg PO HS PRN 08/28/18 08/30/18 Ezetimibe [Zetia] 10 mg PO DAILY #30 tablet 08/31/18 Magnesium Oxide [Mag Ox] 400 mg PO DAILYWM #30 tablet 08/31/18 Metoprolol Succinate [Toprol Xl] 37.5 mg PO BIDWM #90 tablet 08/31/18 Spironolactone [Aldactone] 12.5 mg PO DAILY #15 tablet 08/31/18 Walker [Ultra-Light Rollator] 1 each MC ONCE #1 each 09/01/18 Wheelchair 1 each MC ONCE #1 each 09/01/18 - Allergies Allergies/Adverse Reactions: Allergies Allergy/AdvReac Type Severity Reaction Status Date / Time Sulfa (Sulfonamide Allergy Severe Rash Verified 08/27/18 06:56 Antibiotics) codeine Allergy Intermediate muscle Verified 08/27/18 06:56 aches - Social History Does the pt smoke?: No Smoking Status: Never smoker Does the pt drink ETOH?: No Does the pt have substance abuse?: No - Immunizations Immunizations are current?: Yes - POLST Patient has POLST: Yes POLST Status: DNR PD ED PE NORMAL - Vitals Vital signs reviewed: Yes - General General: Alert and oriented X 3 - HEENT HEENT: PERRL - Neck Neck: Supple, no meningeal sign - Cardiac Cardiac: No: RRR (a fib) - Respiratory Respiratory: No respiratory distress, Clear bilaterally - Abdomen Abdomen: Non tender - Derm Derm: Normal color - Neuro Neuro: Alert and oriented X 3, service counselor 2-12 intact, No motor deficit, No sensory deficit, Normal speech, Other (NIHSS zero, medics state needed assist to walk due to overall weakness) Eye Opening: Spontaneous Motor: Obeys Commands Verbal: Oriented GCS Score: 15 Results - Vitals Vitals: Vital Signs - 24 hr 09/01/18 09/01/18 09/01/18 07:24 10:01 12:02 Temperature 36.0 C L 36.7 C Heart Rate 96 93 94 Respiratory 14 16 17 Rate Blood Pressure 157/99 H 140/89 H 143/93 H O2 Saturation 97 98 97 09/01/18 14:16 Temperature Heart Rate 96 Respiratory 16 Rate Blood Pressure 115/80 O2 Saturation 93 Oxygen O2 Source Room air - EKG (time done) 0745 Rate: Rate (enter#) (91) Rhythm: Atrial fibrillation [place]: Normal Ischemia: Non specific changes - Labs Labs: Laboratory Tests 09/01/18 09/01/18 09/01/18 07:50 07:58 07:58 WBC 4.5 L RBC 4.62 Hgb 14.2 Hct 42.2 MCV 91.2 MCH 30.7 MCHC 33.7 RDW 15.0 Plt Count 263 MPV 8.3 Neut # (Auto) 3.2 Lymph # (Auto) 0.8 L Patrick # (Auto) 0.3 Eos # (Auto) 0.1 Baso # (Auto) 0.0 Absolute Nucleated RBC 0.00 Nucleated RBC % 0.0 ESR Sodium 135 Potassium 3.9 Chloride 103 Carbon Dioxide 25 Anion Gap 7.0 BUN 11 Creatinine 0.6 Estimated GFR (MDRD) 95 Glucose 98 Calcium 10.1 Magnesium 1.7 Troponin I Urine Color Urine Clarity Urine pH Ur Specific [place] Urine Protein Urine Glucose (UA) Urine Ketones Urine Occult Blood Urine Nitrite Urine Bilirubin Urine Urobilinogen Ur Leukocyte Esterase Ur Microscopic Review Urine Culture Comments 09/01/18 09/01/18 09/01/18 07:58 08:25 12:29 WBC RBC Hgb Hct MCV MCH MCHC RDW Plt Count MPV Neut # (Auto) Lymph # (Auto) Patrick # (Auto) Eos # (Auto) Baso # (Auto) Absolute Nucleated RBC Nucleated RBC % ESR 6 Sodium Potassium Chloride Carbon Dioxide Anion Gap BUN Creatinine Estimated GFR (MDRD) Glucose Calcium Magnesium Troponin I < 0.04 Urine Color YELLOW Urine Clarity CLEAR Urine pH 7.5 Ur Specific [place] 1.010 Urine Protein NEGATIVE Urine Glucose (UA) NEGATIVE Urine Ketones NEGATIVE Urine Occult Blood NEGATIVE Urine Nitrite NEGATIVE Urine Bilirubin NEGATIVE Urine Urobilinogen 0.2 (NORMAL) Ur Leukocyte Esterase NEGATIVE Ur Microscopic Review NOT INDICATED Urine Culture Comments NOT INDICATED PD MEDICAL DECISION MAKING - ED course ED course: chart review in EMR pt first admitted with R sided weakness that resolved - dx TIA then admitted with generally weak and wobbly exactly like this morning - felt med related so her meds were changed around in the last week pt has had two CT head, CTA brain, CTA neck, MRI brain - all with no major or fixable abnormalities - does not appear to have an acute central neurologic process also an echo which showed EF 55% tricuspid regurge and CXR UA etc neg for infection so left with most likely cause of sx being medication related pt unable to safely stand at this time, [place] alone with family about 6 miles away will consult hospitalist team who dced pt yesterday to come eval to determine if pt should be readmitted for further med management and sx control hospitalist came and saw pt she failed her road test hospitalist team determined she did not meet criteria to be admitted hospitalist team rec pt go to SNF so SW met with family - unfortunately she was admitted inpt for 2 nights, dced, then redmitted as obs so does not have medicare coverage for SNF so family decided to take pt home - daughter will stay with her at all times - very worried about pt falling on xarelto - offered a walker but they already have one - will also suggest a transport chair hospitalist rec stopped zetia I spoke to Dr Singh and he will call family to rec stop xarelto Departure - Departure Disposition: 01 Home, Self Care Clinical Impression: Weakness Condition: Good Instructions: ED Fall Dizziness Weakn Balance Follow-Up: Clari Verdugo MD [Physician No Access] - Ronen Singh MD [Primary Care Provider] - Prescriptions: Walker [Ultra-Light Rollator] 1 each MC ONCE #1 each Wheelchair 1 each MC ONCE #1 each Comments: You have had a very very extensive work up over the last week including MRI of your brain, 2 CT scans of the brain, angiograms of your brain and neck, an echocardiogram, tests to rule out infection. Everything has come back reassuring Therefore, by process of elimination i suspect some of your symptoms are due to medication side effects. The hospitalist had adjusted your medications - please continue as prescribed. I am worried about you falling due to your weakness - since you are on a blood thinner this would be very dangerous. We considered having you go to a [facility] facility for rehab and med management but it was not covered by insurance. So in the end, you and your family decided to go home. Please always use your walker or even a wheelchair to prevent falling. Ask your primary care doctor if you should stop the xarelto - this risk may outweigh any benefit - I suggest you call the office today to discuss this issue I have referred you to neurology - please call to schedule And please follow up with your PMD within 3 days for a recheck Discharge Date/Time: 09/01/18 14:17
[2018-09-01 08:18] LABS: CALCIUM 10.1 mg/dL (8.5-10.3); CREATININE 0.6 mg/dL (0.4-1.0)
[2018-09-01 08:39] LABS: BASOPHILS % (AUTO) 0.8 %; EOSINOPHILS # (AUTO) 0.1 10^3/uL (0.0-0.7); EOSINOPHILS % (AUTO) 2.5 %; HGB - HEMOGLOBIN 14.2 g/dL (12.0-16.0); LYMPHOCYTES # (AUTO) 0.8 10^3/uL (1.5-3.5); LYMPHOCYTES % (AUTO) 18.3 %; MEAN CORPUSCULAR HEMOGLOBIN 30.7 pg (27.0-31.0); MEAN CORPUSCULAR HGB CONC 33.7 g/dL (32.0-36.0); MEAN CORPUSCULAR VOLUME 91.2 fL (81.0-99.0); MEAN PLATELET VOLUME 8.3 fL (7.9-10.8); MONOCYTES # (AUTO) 0.3 10^3/uL (0.0-1.0); MONOCYTES % (AUTO) 6.9 %; NEUTROPHILS # (AUTO) 3.2 10^3/uL (1.5-6.6); NEUTROPHILS % (AUTO) 71.5 %; PLT - PLATELET COUNT 263 10^3/uL (130-450); RED BLOOD COUNT 4.62 10^6/uL (4.20-5.40); WHITE BLOOD COUNT 4.5 x10^3/uL (4.8-10.8)
[2018-09-01 08:44] LABS: BILIRUBIN,URINE NEGATIVE (NEGATIVE); GLUCOSE, URINE (UA) NEGATIVE (NEGATIVE); KETONES,URINE (UA) NEGATIVE (NEGATIVE); LEUKOCYTE ESTERASE, URINE NEGATIVE (NEGATIVE); NITRITE,URINE NEGATIVE (NEGATIVE); OCCULT BLOOD,URINE NEGATIVE (NEGATIVE); PH,URINE 7.5 PH (5.0-7.5); PROTEIN,URINE NEGATIVE (NEGATIVE); UROBILINOGEN,URINE 0.2 (NORMAL) E.U./dL (NORMAL)
[2018-09-01 08:46] LABS: CLARITY,URINE CLEAR (CLEAR)
[2018-09-01] MEDS ORDERED: METOPROLOL SUCCINATE 25 MG TABLET PO SCH ×2 (12:08→12:09)
--- NOTE | 2018-09-01 12:11 | CONSULTATION NOTE ---
Referring Provider Consult Date: 09/01/18 History of Present Illness - Admitted From Admitted From:: ED - History Obtained From Records Reviewed: yes History obtained from: patient, family, chart review Exam Limitations: none - History of Present Illness HPI Comment/Other: Nirav Mcclendon is an 83-year old female with a past medical history of atrial fib on Xarelto, asthma, HTN, GERD, ulcers, Glaucoma, and osteoarthritis. She was just discharged yesterday after being admitted for profound weakness and the inability to ambulate thought to be caused by statin intolerance. Previous to that she had TIA symptoms including right-sided weakness and shortness of breath upon awakening, which was ruled out for any acute findings-also an observation stay. She was started on Zetia and her metoprolol was changed to succinate for better heart rate control. She was taken off lasix that was changed to Spironolactone to appropriately treat her pulmonary hypertension that was shown to be worsened in her last echo. She was medically stable at the time of discharge yesterday and was taken via private car home by her son and [id number] who I personally reviewed the medication changes. A similar episode occurred this morning in which the patient took a fourth of an Ambien around 11pm and awoke just after 5AM. She attempted to get out of bed to empty her bladder when she note to be generally weak and could not support her own weight, so called her [id number], who then called EMS. Once in the ED there were no lab abnormalities, and the patient had a slight improvement in her overall weakness, although was not at her baseline. Hospitalist was consulted as she had just been under our care. On my exam she had no focal neuro defici ts, was conversing well, but had an elevated heart rate of 110, and was hypertensive with a blood pressure of 147/92. She denies chest pain, chest pressure, recent weight loss, a new rash, a productive cough, syncope, falls, new incontinence, headaches, nausea, vomiting or diarrhea. She admitted to only slight shortness of breath at times that seems to come and go. She stated that she felt quite hungry, and had not taken any of her morning medications. She will be evaluated for her ongoing weakness and a social work consult. Thank you for this consult. History - Past Medical History Cardiovascular: reports: Congestive heart failure, Hypertension, High cholesterol, Atrial fibrillation, Murmur, Arrhythmia Respiratory: reports: Asthma, Shortness of breath Neuro: reports: Dementia, TIA, Peripheral neuropathy Endocrine/Autoimmune: reports: None GI: reports: GERD, Ulcers TUBE BENDING MACHINE OPERATOR: reports: None : reports: Nocturia, Frequency HEENT: reports: Chronic vision loss, Glaucoma, Chronic sinusitis, Chronic hearing loss Psych: reports: Depression Musculoskeletal: reports: Osteoarthritis Derm: reports: None MRSA Hx?: No - Past Surgical History General: reports: Cholecystectomy, Appendectomy, Colonoscopy, EGD /TUBE BENDING MACHINE OPERATOR: reports: Hysterectomy, Oophrectomy, Breast reduction HEENT: reports: Cataracts - Family & Social History Family History: Mother: , CVA/TIA, Father: , CAD, Cancer Living arrangement: At home Living Situation: Alone Social History Notes: The patient lives independently and has 3 grown children with several grand children. She uses just a cane for ambulation and denies recent falls. She denies tobacco, alcohol or drug use. She wishes to be a DNR. - Substance History Use: Uses substance without health or social issues: NONE Abuse: Recurrent use of substance despite neg consequences: NONE Dependence: Experiences withdrawal or developed tolerances: NONE - POLST Patient has POLST: Yes POLST Status: DNR Meds/Allgy - Home Medications Home Medications: Ambulatory Orders Medication Instructions Recorded Confirmed Acetaminophen [Tylenol] 650 mg PO Q6H PRN 08/27/18 08/30/18 Ascorbic Acid 500 mg PO DAILY 08/27/18 08/30/18 Famotidine 20 mg PO DAILY 08/27/18 08/30/18 Ipratropium [place] 2 puffs NS TID PRN 08/27/18 08/30/18 Isosorbide Dinitrate 10 mg PO TID 08/27/18 08/30/18 Lisinopril 10 mg PO DAILY 08/27/18 08/30/18 Meclizine HCl [Motion Sickness 25 mg PO DAILY PRN 08/27/18 08/30/18 Relief] Multivitamin [Multiple Vitamins] 1 each PO DAILY 08/27/18 08/30/18 Rivaroxaban [Xarelto] 20 mg PO DAILY 08/27/18 08/30/18 Timolol 0.5% Ophth Drops [Timoptic 1 drops EACHEYE BID 08/27/18 08/30/18 0.5% Ophth Drops] Travoprost [Travatan Z] 1 drops EACHEYE QPM 08/27/18 08/30/18 Aspirin 81 mg PO DAILY 08/28/18 08/30/18 Melatonin 3 mg PO QPM 08/28/18 08/30/18 Zolpidem [Ambien] 2.5 - 5 mg PO HS PRN 08/28/18 08/30/18 Ezetimibe [Zetia] 10 mg PO DAILY #30 tablet 08/31/18 Magnesium Oxide [Mag Ox] 400 mg PO DAILYWM #30 tablet 08/31/18 Metoprolol Succinate [Toprol Xl] 37.5 mg PO BIDWM #90 tablet 08/31/18 Spironolactone [Aldactone] 12.5 mg PO DAILY #15 tablet 08/31/18 Walker [Ultra-Light Rollator] 1 each MC ONCE #1 each 09/01/18 Wheelchair 1 each MC ONCE #1 each 09/01/18 - Allergies Allergies/Adverse Reactions: Allergies Allergy/AdvReac Type Severity Reaction Status Date / Time Sulfa (Sulfonamide Allergy Severe Rash Verified 08/27/18 06:56 Antibiotics) codeine Allergy Intermediate muscle Verified 08/27/18 06:56 aches Review of Systems - Constitutional Constitutional: reports: Fatigue, Weakness - Eyes Eyes: reports: Corrective lenses - Ears, Nose & Throat Ears, Nose & Throat: reports: Hearing loss, Vertigo, Postnasal drainage, Dentures - Cardiovascular Cariovascular: reports: Lightheadedness - Gastrointestinal Gastrointestinal: reports: Reflux/heartburn - Genitourinary Genitourinary: reports: Frequency, Nocturia - Musculoskeletal Musculoskeletal: reports: Muscle aches, Limited range of motion - Integumentary Integumentary: reports: Dryness - Neurological Neurological: reports: General weakness, Dizziness, Memory problems, Pre- existing deficit - All Other Systems All Other Systems: reports: Reviewed and negative Exam - Vital Signs Reviewed Vital Signs: Yes Vital Signs: Vital Signs x48h Temp Pulse Resp BP Pulse Ox 09/01/18 12:02 94 17 143/93 H 97 09/01/18 10:01 36.7 C 93 16 140/89 H 98 09/01/18 07:24 36.0 C L 96 14 157/99 H 97 - Physical Exam General Appearance: positive: No acute distress, Alert Eyes Bilateral: positive: PERRL ENT: positive: Pharynx nml, No signs of dehydration Neck: positive: Thyroid nml, No JVD, Trachea midline, Stiff neck Respiratory: positive: Chest non-tender, No respiratory distress, Breath sounds nml Cardiovascular: positive: Regular rate & rhythm, No gallop, Systolic murmur Peripheral Pulses: positive: 2+ Abdomen: positive: Non-tender, Nml bowel sounds Back: positive: Nml inspection Skin: positive: Color nml, No rash, Warm, Dry Extremities: positive: Non-tender, Full ROM, Nml appearance, No pedal edema Neurologic/Psychiatric: positive: Oriented x3, CN's nml (2-12), Motor nml, Sensation nml, Mood/affect nml, Weakness (slight weakness in LUE, baseline.), Sensory loss Reflexes: Bicep (R): 3+, Bicep (L): 2+ Conclusion/Plan - Diagnosis Diagnosis: Weakness. vertigo. Inability to ambulate - Plan Plan: Plan: Differential dx may include: depression, malignancy, polymalgia rheumatica, early Parkinson's disease, or polypharmacy. Discontinue Zetia to rule out this as a cause. Avoid the use of Ambien. Seek a higher level of care, without living independently. Follow up with PCP to evaluate for further work up. - Lab Results Lab results reviewed: Yes Fish Bones: 09/01/18 07:58 09/01/18 07:58
[2018-09-01 14:17] VITALS: BP 115/80
== END 2018-09-01 14:17 | disposition home or self-care (01) ==
LOC: EDUNIT# → ED 07:21
DX: R53.1 Weakness (principal); R42 Dizziness and giddiness; R26.2 Difficulty in walking, not elsewhere classified; I48.91 Unspecified atrial fibrillation; I11.0 Hypertensive heart disease with heart failure; I50.9 Heart failure, unspecified; E78.00 Pure hypercholesterolemia, unspecified; F03.90 Unspecified dementia, unspecified severity, without behavioral disturbance, psychotic disturbance, mood disturbance, and anxiety; G62.9 Polyneuropathy, unspecified; Z86.73 Personal history of transient ischemic attack (TIA), and cerebral infarction without residual deficits; Z79.01 Long term (current) use of anticoagulants; Z79.82 Long term (current) use of aspirin
CPT/HCPCS: 36415; 80048; 81001; 81003; 83735; 84484; 85025; 85651; 87086; 93005; 99284